=== PATIENT | female | born 1960 | race African-American/Black ===

== ENCOUNTER → 2016-08-22 | Outpatient (CLI) | payer OTHER ==
[~2016-08-22] MED LIST: AMOX875T PO; BUPR-267 PO; CLR10 PO; FAMO20TA11 PO; FLUT0.15; FLVHFA110 INH; IPRA1AER2 INH; IPRASOL4 INH; PRED10TA PO; PRED50TA PO; VNTHFA/IN INH
== END | disposition home or self-care (01) ==
LOC: C.PATHSPEC 15:43
PROVIDERS: ATTEND Obstetrics & Gynecology
DX: R87.610 Atypical squamous cells of undetermined significance on cytologic smear of cervix (ASC-US) (principal); R87.810 Cervical high risk human papillomavirus (HPV) DNA test positive

== ENCOUNTER → 2016-11-14 | Outpatient (CLI) | payer OTHER ==
[~2016-11-14] MED LIST changes: -AMOX875T PO; -BUPR-267 PO; -CLR10 PO; -FAMO20TA11 PO; -IPRASOL4 INH; -PRED10TA PO; -PRED50TA PO
--- NOTE | 2016-11-14 09:05 | DIAGNOSTIC IMAGING REPORT ---
CT OF THE CHEST WITHOUT IV CONTRAST CLINICAL HISTORY: R91.1 Pulmonary [id number] COMPARISON STUDY: 07/12/2016 CT DOSE: 166.01 mGycm TECHNIQUE: CT of the thorax was performed from the thoracic inlet to the lung bases. Images are reviewed in the axial, sagittal, and coronal planes. IV contrast was not administered for this examination. FINDINGS: Thyroid: Imaged portions of the thyroid gland are normal in appearance. Thoracic aorta: The thoracic aorta is normal in course and caliber, noting standard 3 vessel arch anatomy. Heart: The heart is normal in size and configuration, without pericardial effusion. Lungs and pleural spaces: There is pulmonary emphysema. There are new right upper lobe tree-in-bud opacities which are felt to be inflammatory. There is a new 6 mm right upper lobe cavitary lesion versus focally dilated bronchus as visualized in image #[id number]. This is likely inflammatory. There is an irregular 1 cm opacity within the right lower lobe as visualized in image #[id number]. Again inflammatory etiology is suspected. There is a 13 mm left lower lobe irregular airspace opacity which was not present on prior study. Again it inflammatory etiology is suspected. There is a 3.8 x 12 mm pleural-based opacity within the left lower lobe, likely inflammatory/atelectatic. There are bilateral cylindrical bronchiectatic changes present. There is no significant pleural fluid. Mediastinum: There is no mediastinal lymphadenopathy. Izabella: There is no evidence of pathologic hilar adenopathy given the limitations of a noncontrast study Axilla: There are mildly prominent right axillary lymph nodes, similar to the prior study Upper abdomen: Partially visualized upper abdominal viscera is within normal limits. Skeletal structures: There are no lytic or blastic osseous lesions. IMPRESSION: 1. Pulmonary emphysema 2. Cylindrical bronchiectasis 3. Multifocal ill-defined nodules and tree-in-bud opacities. An inflammatory etiology is suspected. Imaging subsequent to treatment is recommended in follow-up. Electronically signed by: Matias Lopez M.D. 11/14/2016 9:04 AM Dictated Date/Time: 11/14/2016 8:56 AM
== END | disposition home or self-care (01) ==
LOC: C.CTS 08:31
PROVIDERS: ATTEND Surgery
DX: R91.8 Other nonspecific abnormal finding of lung field (principal); J43.9 Emphysema, unspecified; J47.9 Bronchiectasis, uncomplicated

== ENCOUNTER → 2016-12-18 | Outpatient (CLI) | payer OTHER ==
[~2016-12-18] MED LIST changes: +AMOX875T PO; +BUPR-267 PO; +CLR10 PO; +FAMO20TA11 PO; +IPRASOL4 INH; +PRED10TA PO
[2016-12-18 12:12] LABS: BASO % 0.2 %; BASO ABS # 0.01 K/uL (0-0.2); COMPLETE YES; EOS % 1.7 %; HEMATOCRIT 39.4 % (37-47); IG% 0.3 %; LYMPH % 24.8 %; MEAN CELL VOLUME 92.5 fL (80-100); MEAN CORPUSCULAR HEMOGLOBIN 31.2 pg (25-34); MEAN CORPUSCULAR HGB CONC 33.8 g/dl (32-36); MEAN PLATELET VOLUME 8.7 fL (7.4-10.4); MONO % 6.2 %; NEUT % 66.8 %; PLATELET COUNT 332 K/uL (130-400); RED BLOOD COUNT 4.26 M/uL (4.2-5.4); WHITE BLOOD COUNT 6.46 K/uL (4.8-10.8)
[2016-12-18 12:25] LABS: INR 0.9 (0.9-1.1); PARTIAL THROMBOPLASTIN RATIO 0.9; PROTHROMBIN TIME (PATIENT) 9.9 SECONDS (9.0-12.0)
[2016-12-18 12:42] LABS: BLOOD UREA NITROGEN 10 mg/dl (7-18); BUN/CREATININE RATIO 15.1 (10-20); CALCIUM 9.2 mg/dl (8.5-10.1); CARBON DIOXIDE 32 mmol/L (21-32); CHLORIDE 102 mmol/L (98-107); CREATININE 0.68 mg/dl (0.60-1.20); GLUCOSE 80 mg/dl (70-99); POTASSIUM 3.6 mmol/L (3.5-5.1); SODIUM 140 mmol/L (136-145)
[2016-12-20 12:26] LABS: QUANTIFERON NIL 0.03 IU/ML
== END | disposition home or self-care (01) ==
LOC: C.LAB 10:11
PROVIDERS: ATTEND Physician Assistant
DX: R91.1 Solitary pulmonary nodule (principal); J44.1 Chronic obstructive pulmonary disease with (acute) exacerbation; R05 Cough

== ENCOUNTER 2017-07-08 07:09 | Emergency (ER) | payer OTHER ==
[~2017-07-08] VITALS: Ht 149.9 cm; Wt 55.9 kg
[~2017-07-08 07:09] MED LIST changes: -AMOX875T PO; -BUPR-267 PO; -CLR10 PO; -FAMO20TA11 PO; -IPRASOL4 INH; -PRED10TA PO
[2017-07-08 07:10] VITALS: TEMP 37.1; O2SAT 93; Ht 149.9 cm; Wt 55.9 kg
[2017-07-08] MEDS ORDERED: ALBUT/IPRATROP 3MG/0.5MG NEB 3 ML VIAL INH STA ×2 (07:16→09:05)
[2017-07-08] MEDS ORDERED: FAMO20TA11 PO (07:32)
[2017-07-08] MEDS ORDERED: CLR10 PO (07:32)
[2017-07-08] MEDS ORDERED: BUPR-267 PO (07:33)
[2017-07-08 07:34] LABS: BASO ABS # 0.03 K/uL (0-0.2); COMPLETE YES; EOS % 2.3 %; HEMATOCRIT 40.5 % (37-47); LYMPH % 43.4 %; LYMPH ABS # 1.34 K/uL (1.2-3.4); MEAN CELL VOLUME 91.4 fL (80-100); MEAN CORPUSCULAR HEMOGLOBIN 31.6 pg (25-34); MEAN CORPUSCULAR HGB CONC 34.6 g/dl (32-36); MEAN PLATELET VOLUME 8.8 fL (7.4-10.4); MONO % 14.6 %; NEUT % 38.7 %; PLATELET COUNT 287 K/uL (130-400); RED BLOOD COUNT 4.43 M/uL (4.2-5.4); WHITE BLOOD COUNT 3.09 K/uL (4.8-10.8)
--- NOTE | 2017-07-08 07:48 | DIAGNOSTIC IMAGING REPORT ---
CHEST 2 VIEWS ROUTINE CLINICAL HISTORY: Shortness of breath COMPARISON STUDY: 08/16/2016 FINDINGS: The cardiac and mediastinal contours are normal. There is no evidence of focal pulmonary consolidation. There is no evidence of failure. No pleural effusions are visualized.[ The patient appears mildly hyperinflated. IMPRESSION: No active disease in the chest. Electronically signed by: Matias Lopez M.D. 07/08/2017 7:47 AM Dictated Date/Time: 07/08/2017 7:46 AM
[2017-07-08 07:52] LABS: BUN/CREATININE RATIO 15.2 (10-20); CREATININE 0.69 mg/dl (0.60-1.20); POTASSIUM 3.4 mmol/L (3.5-5.1)
--- NOTE | 2017-07-08 10:35 | EMERGENCY ROOM VISIT NOTE ---
ED Visit Note First contact with patient: 07:11 Pt seen and examined at bedside after discussion with the PA. Pt felt improved following neb tx. Unclear what may have triggered what pt believes to be an asthma attack. Denies any recent cold sx. No hx of heart problems or PE. Pt given duonebs here and took prednisone at home before coming in. Pt required several nebs as she had conversational dyspnea after initial neb. Low risk well , but cannot rule out with PERC, dimer elevated and CTA negative. No chest pain or EKG changes, doubt cardiac etiology. Pt improved with additional nebs and steroids. Likely asthma/COPD exacerbation. HEART score 2
[2017-07-08 11:47] LABS: CKMB/CK RATIO 1.1 (0-3.0)
[2017-07-08] MEDS ORDERED: OPTIRAY 320 IV PRN (12:30)
--- NOTE | 2017-07-08 13:22 | DIAGNOSTIC IMAGING REPORT ---
CT ANGIOGRAM OF THE CHEST CLINICAL HISTORY: Shortness of breath. Positive d-dimer. History of asthma. COMPARISON STUDY: Chest x-ray dated 07/08/2017, CT scan dated 11/14/2016 TECHNIQUE: Following the IV administration of 73 mL of [id number]-[id number], CT angiogram of the thorax was performed from the thoracic inlet to the lung bases utilizing the pulmonary embolus protocol. Images are reviewed in the axial, sagittal, and coronal planes. IV contrast was administered without complication. MIP imaging was performed. A dose lowering technique was utilized adhering to the principles of ALARA. CT DOSE: 174.57 mGy.cm FINDINGS: No pathologically enlarged axillary mediastinal or hilar lymph nodes were visualized. There was no evidence of thoracic aortic dilatation. There were no pulmonary artery filling defects to indicate acute pulmonary embolism. No pleural effusions are visualized. There is evidence for underlying pulmonary emphysema. There are biapical bulla present. There is a prominent bulla within the lingula. There are bilateral cylindrical bronchiectatic changes. There is no lobar consolidation. There is an irregular marginated 11 mm opacity within the right lower lobe, similar to the preceding study. IMPRESSION: 1. No evidence of acute pulmonary embolism 2. Pulmonary emphysema and cylindrical bronchiectasis 3. Stable indeterminate 11 mm irregularly marginated right lower lobe opacity Electronically signed by: Matias Lopez M.D. 07/08/2017 1:20 PM Dictated Date/Time: 07/08/2017 1:16 PM
[2017-07-08] MEDS ORDERED: PRED10TA PO (13:47)
[2017-07-08 13:52] VITALS: BP 120/83; PULSE 83; O2SAT 92
--- NOTE | 2017-07-11 17:35 | EMERGENCY ROOM VISIT NOTE ---
History First contact with patient: 07:11 Chief Complaint: SHORTNESS OF BREATH Stated Complaint: SHORTNESS OF BREATH Nursing Triage Summary: Patient presents via BLS ambulance to room A3 with c/o SOB Patient reports that she woke at 0400 today with sudden onset of SOB She states that she took two prednisone and a duo nebulizer treatment at home States she still feels SOB and is coughing Hx/ asthma, COPD History of Present Illness The patient is a 56 year old -[place] female who presents to the Emergency Room with complaints of shortness of breath that started abruptly at 4 AM today. She has a known history of asthma. She states she has not had a flare of her asthma in over 2 years. She is not sure what caused today's flare. She states she went to bed last night without issue. She denies any fevers, chills, sweats, nausea, vomiting, chest pain, or rhinorrhea. She does have a mild cough. No known ill contacts. She lives by herself. She did take 2 tablets of prednisone 10mg this morning as well as a DuoNeb treatment around 6 AM. These were not helpful in relieving her symptoms. She arrives by BLS ambulance. No other complaints. Review of Systems REVIEW OF SYSTEM: HEENT: No dizziness, visual problems, hearing loss, or tinnitus. There is no difficulty swallowing and no oral lesions are present. LYMPH: No adenopathy. PULMONARY: No sputum production or hemoptysis. CARDIOVASCULAR: No palpitations or peripheral edema. GASTROINTESTINAL: No diarrhea, constipation, nausea, vomiting, or abdominal pain. GENITOURINARY: No dysuria, frequency, urgency or nocturia. NEUROLOGIC: No weakness, muscle tenderness, epilepsy or history of neurological problems. MUSCULOSKELETAL: No history of joint tenderness/swelling. No history of arthritis or arthralgias. SKIN: No rashes or lesions. PSYCHIATRIC: No history of depression or mental illness. ENDOCRINE: No history of diabetes, thyroid disorders, or abnormal hair growth. Past Medical/Surgical History Medical Problems: (1) Asthma Family History Asthma Social History Smoking Status: Current Every Day Smoker Smokeless Tobacco Use: No Alcohol Use: occasionally Drug Use: none Marital Status: Housing Status: lives with family Current/Historical Medications Scheduled Bupropion Hcl (Bupropion Hcl Er), 150 MG PO Q12 Famotidine (Pepcid), 20 MG PO DAILY Fluticasone Propionate (Flovent Hfa), 2 PUFFS INH BID Fluticasone Propionate (Nasal) (Flonase Allergy Relief), 1 SPRAY NA BID Ipratropium-Albuterol (Combivent Respimat), 1 PUFFS INH QID Loratadine (Claritin), 10 MG PO DAILY Prednisone Tab (Prednisone), 30 MG PO DAILY Scheduled PRN Albuterol Hfa (Ventolin Hfa), 2-4 PUFFS INH Q6H PRN for Shortness of Breath Physical Exam Vital Signs Date Time Temp Pulse Resp B/P (MAP) Pulse Ox O2 Delivery O2 Flow Rate FiO2 07/08/17 13:52 83 20 120/83 92 Room Air 07/08/17 13:27 85 07/08/17 12:20 79 20 118/73 97 Nasal Cannula 2.0 07/08/17 11:02 90 20 129/79 96 Nasal Cannula 2.0 07/08/17 10:50 96 07/08/17 10:03 110 90 Room Air 07/08/17 10:00 Nasal Cannula 2.0 07/08/17 10:00 94 22 122/85 88 Room Air 07/08/17 08:26 90 20 133/81 91 Room Air 07/08/17 07:30 84 20 128/84 94 Room Air 07/08/17 07:18 113 07/08/17 07:10 93 Room Air 07/08/17 07:10 37.1 92 20 151/103 93 Room Air 07/08/17 07:10 93 Room Air Physical Exam Gen.: Well-developed, well-nourished, middle-aged -[place] female, in no acute distress. Obvious respiratory difficulty. Sitting on a bed. Alert and oriented. Skin:Warm and dry with good turgor. No rashes or lesions. No ecchymosis or erythema. The patient is not diaphoretic. No abrasions. HEENT: Normocephalic atraumatic. Eyes PERRLA, EOMI. No conjunctiva or scleral injection. Ears TMs intact bilaterally with good light reflexes. No erythema or bulging. No hemotympanum. Canals are patent. Nares patent bilaterally without turbinate enlargement. No significant drainage. No epistaxis. Oropharynx without erythema or exudate. Uvula midline, oral mucosa moist. No lesions present. Poor dentition. Lymphatics are palpated without anterior or posterior chain enlargement or tenderness. Heart: Heart RRR. No MGR. Peripheral pulses are 2+. Lungs: Lungs are very tight to auscultation. Bilateral wheezing and bibasilar crackles are heard. Fair air movement. The patient is unable to take a deep breath. Abdomen: Abdomen was inspected, auscultated, and palpated. Bowel sounds present x 4. Soft, nontender to palpation. No hepato-splenomegaly. No masses noted. Musculoskeletal: Gross motor function of the upper and lower extremities is intact and unremarkable. Medical Decision & Procedures ER Provider Diagnostic Interpretation: Chest x-ray obtained today was read by radiology as negative for acute findings. CT scan imaging of the chest with IV contrast was also obtained. This was read by radiology as negative for PE or pneumonia. She does have emphysema changes. EKG obtained today shows a normal sinus rhythm with a rate of 83. No acute ST or T-wave changes are present. This was reviewed with Dr. Bower. Laboratory Results 07/08/17 07:20 Red Blood Count 4.43, Mean Corpuscular Volume 91.4, Mean Corpuscular Hemoglobin 31.6, Mean Corpuscular Hemoglobin Concent 34.6, Mean Platelet Volume 8.8, Neutrophils (%) (Auto) 38.7, Lymphocytes (%) (Auto) 43.4, Monocytes (%) (Auto) 14.6, Eosinophils (%) (Auto) 2.3, Basophils (%) (Auto) 1.0, Neutrophils # (Auto ) 1.20, Lymphocytes # (Auto) 1.34, Monocytes # (Auto) 0.45, Eosinophils # (Auto ) 0.07, Basophils # (Auto) 0.03 07/08/17 07:20 Test 07/08/17 07:16 07/08/17 07:20 07/08/17 11:34 Total Creatine Kinase 83 U/L (26-192) Creatine Kinase MB 0.9 ng/ml (0.5-3.6) Creatine Kinase MB Ratio 1.1 (0-3.0) Troponin I < 0.015 ng/ml (0-0.045) White Blood Count 3.09 K/uL (4.8-10.8) Red Blood Count 4.43 M/uL (4.2-5.4) Hemoglobin 14.0 g/dL (12.0-16.0) Hematocrit 40.5 % (37-47) Mean Corpuscular Volume 91.4 fL (80-100) Mean Corpuscular Hemoglobin 31.6 pg (25-34) Mean Corpuscular Hemoglobin Concent 34.6 g/dl (32-36) Platelet Count 287 K/uL (130-400) Mean Platelet Volume 8.8 fL (7.4-10.4) Neutrophils (%) (Auto) 38.7 % Lymphocytes (%) (Auto) 43.4 % Monocytes (%) (Auto) 14.6 % Eosinophils (%) (Auto) 2.3 % Basophils (%) (Auto) 1.0 % Neutrophils # (Auto) 1.20 K/uL (1.4-6.5) Lymphocytes # (Auto) 1.34 K/uL (1.2-3.4) Monocytes # (Auto) 0.45 K/uL (0.11-0.59) Eosinophils # (Auto) 0.07 K/uL (0-0.5) Basophils # (Auto) 0.03 K/uL (0-0.2) RDW Standard Deviation 49.6 fL (36.4-46.3) RDW Coefficient of Variation 14.7 % (11.5-14.5) Immature Granulocyte % (Auto) 0.0 % Immature Granulocyte # (Auto) 0.00 K/uL (0.00-0.02) Anion Gap 7.0 mmol/L (3-11) Est Creatinine Clear Calc Drug Dose 71.1 ml/min Estimated GFR () 114.4 Estimated GFR (Non- 98.7 BUN/Creatinine Ratio 15.2 (10-20) Calcium Level 9.0 mg/dl (8.5-10.1) D-Dimer 550 ug/L FEU (0-500) CBC, PRP, CK/CK-MB, troponin, and d-dimer were obtained. Cardiac enzymes are unremarkable. D-dimer is elevated at 550. CBC and PRP were unremarkable. Medications Administered Medications (Trade) Dose Ordered Sig/Eddie Route Start Time Stop Time Status Last Admin Dose Admin Albuterol/ Ipratropium (Duoneb) 3 ml NOW STAT INH 07/08/17 07:16 07/08/17 07:18 DC 07/08/17 07:46 3 ML Albuterol/ Ipratropium (Duoneb) 3 ml NOW STAT INH 07/08/17 09:05 07/08/17 09:06 DC 07/08/17 09:14 3 ML Prednisone (PredniSONE TAB) 20 mg NOW STAT PO 07/08/17 13:44 07/08/17 13:45 DC 07/08/17 14:08 20 MG DuoNeb treatment 2, prednisone 20 mg by mouth ED Course Patient was educated regarding today's findings. Conservative care measures were discussed. IV was established. Labs were obtained. Chest x-ray was also obtained to rule out pneumonia. This was unremarkable. Patient was given a DuoNeb treatment in the ED. Oxygen saturations improved considerably. She was ambulated and her saturations dropped again. She denied having any tightness in her chest. She was given a second DuoNeb treatment. Lung sounds improved considerably and she was no longer hypoxic when ambulatory. She states she is normally around 90-92% on room air in her daily life. Because of her elevated d -dimer, she was sent for CT scan imaging to rule out PE. This was read by radiology as unremarkable. She was instructed to follow-up with her PCP this week for reexamination. Return to the ED for any acute worsening of symptoms. Avoid smoking. Continue on prednisone 30 mg daily on Sunday through . Continue using her Flovent and Combivent inhalers. She may also use. Nebulizer at home as needed. Patient was seen in conjunction with Dr. Bower, who also evaluated the patient and concurred with today's diagnosis and treatment plan. Medical Decision Possibility of pneumonia, PE, acute asthma exacerbation, exacerbation of emphysema, bronchitis, and ACS were considered among others. Medication Reconcilliation Current Medication List: was personally reviewed by me Blood Pressure Screening Blood pressure disposition: Elevated BP felt to be situational Impression Primary Impression: Asthma exacerbation Departure Information Prescriptions Prednisone Tab (PREDNISONE) 10 Mg Tab 30 MG PO DAILY for 4 Days, #12 TAB Prov: Tomasz Mccain,P.A. 07/08/17 Referrals Miguel Mitchell D.ODena (PCP) Patient Instructions My [facility] Problem Qualifiers Primary Impression: Asthma exacerbation Asthma severity: unspecified severity Asthma persistence: intermittent Qualified Codes: J45.21 - Mild intermittent asthma with (acute) exacerbation
== END 2017-07-08 14:10 | disposition home or self-care (01) ==
LOC: EDBD 07:09 → C.EDA 07:10
DX: J45.901 Unspecified asthma with (acute) exacerbation (principal); F17.200 Nicotine dependence, unspecified, uncomplicated; Z79.51 Long term (current) use of inhaled steroids; Z79.52 Long term (current) use of systemic steroids; Z82.5 Family history of asthma and other chronic lower respiratory diseases

== ENCOUNTER 2017-07-11 11:08 | Emergency (ER) | payer OTHER ==
[~2017-07-11] VITALS: Ht 149.9 cm; Wt 51.0 kg
[~2017-07-11 11:08] MED LIST changes: +BUPR-267 PO; +CLR10 PO; +FAMO20TA11 PO; +PRED10TA PO
[2017-07-11 11:14] VITALS: Ht 149.9 cm; Wt 51.0 kg
[2017-07-11] MEDS ORDERED: ALBUT/IPRATROP 3MG/0.5MG NEB 3 ML VIAL INH STA (11:24)
--- NOTE | 2017-07-11 12:06 | DIAGNOSTIC IMAGING REPORT ---
CHEST ONE VIEW PORTABLE CLINICAL HISTORY: Cough, dyspnea, heart racing cardiac arrhythmia COMPARISON STUDY: 07/08/2017 FINDINGS: Lungs are clear. Diaphragms smooth. No evidence for cardiac enlargement. IMPRESSION: No acute process. The above report was generated using voice recognition software. It may contain grammatical, syntax or spelling errors. Electronically signed by: Shailesh Arauz M.D. 07/11/2017 12:05 PM Dictated Date/Time: 07/11/2017 12:05 PM
--- NOTE | 2017-07-11 12:17 | EMERGENCY ROOM VISIT NOTE ---
History First contact with patient: 11:16 Chief Complaint: SHORTNESS OF BREATH Stated Complaint: SOB Nursing Triage Summary: Sudden onset of shortness of breath while making her bed this morning. Patient states that she felt tightness in her throat and her heart was racing. States that she used ventolin, flovent, and her nebulizer this morning prior to this occurring. History of Present Illness The patient is a 56 year old female who presents to the Emergency Room via ambulance with complaints of "shortness of breath". The patient does have a history of asthma. She states she was seen here on Sunday. She recently began Wellbutrin 1.5 weeks ago. She states that this does not feel like her asthma. Today while making the bed she stood up and her heart began racing, her throat felt that it was closing and she felt short of breath. She states that she has a history of asthma but notes that this is not the same. There was no chest pain. States that she called 911 she called 911 and was brought here and had duo nebs. They did help some. She denies any new foods. She is also been trying to quit smoking of which she was prescribed Wellbutrin for. Review of Systems A complete 10-point Review of Systems was discussed with the patient, with pertinent positives and negatives listed in the History of Present Illness. All remaining Review of Systems questions can be considered negative unless otherwise specified. Past Medical/Surgical History Medical Problems: (1) Asthma Family History Asthma Social History Smoking Status: Current Every Day Smoker Alcohol Use: occasionally Drug Use: none Marital Status: Housing Status: lives with family Current/Historical Medications Scheduled Bupropion Hcl (Bupropion Hcl Er), 150 MG PO Q12 Famotidine (Pepcid), 20 MG PO DAILY Fluticasone Propionate (Flovent Hfa), 2 PUFFS INH BID Fluticasone Propionate (Nasal) (Flonase Allergy Relief), 1 SPRAY NA BID Ipratropium-Albuterol (Combivent Respimat), 1 PUFFS INH QID Loratadine (Claritin), 10 MG PO DAILY Prednisone Tab (Prednisone), 30 MG PO DAILY Scheduled PRN Albuterol Hfa (Ventolin Hfa), 2-4 PUFFS INH Q6H PRN for Shortness of Breath Physical Exam Vital Signs Date Time Temp Pulse Resp B/P (MAP) Pulse Ox O2 Delivery O2 Flow Rate FiO2 07/11/17 14:12 36.8 94 18 159/71 92 07/11/17 13:19 104 22 117/85 93 Room Air 07/11/17 12:51 80 20 122/82 97 Nebulizer 10.0 07/11/17 11:31 103 07/11/17 11:18 92 Room Air 07/11/17 11:14 36.7 92 22 166/100 93 Room Air Physical Exam VITAL SIGNS - Vital signs and nursing notes were reviewed. Stable. Hypertensive. GENERAL -56-year-old female appearing her stated age who is in no acute distress. Communicates well with provider and answers questions appropriately. SKIN - Without rashes. The petechial rashes. HEAD - NC/AT. EYES - PERRL with EOMI bilaterally. Sclera anicteric. EARS - No deformities of external structures noted on gross examination bilaterally. NOSE - Midline and without cyanosis. No epistaxis or purulent drainage noted. MOUTH/OROPHARYNX - Without perioral cyanosis. LUNGS - Chest wall symmetric without accessory muscle use, intercostals retractions, or central cyanosis. Normal vesicular breath sounds CTA B/L. No wheezes, rales, or rhonchi appreciated. CARDIAC - RRR with S1/S2. No murmur, rubs, or gallops appreciated. Medical Decision & Procedures ER Provider Diagnostic Interpretation: CHEST ONE VIEW PORTABLE CLINICAL HISTORY: Cough, dyspnea, heart racing cardiac arrhythmia COMPARISON STUDY: 07/08/2017 FINDINGS: Lungs are clear. Diaphragms smooth. No evidence for cardiac enlargement. IMPRESSION: No acute process. The above report was generated using voice recognition software. It may contain grammatical, syntax or spelling errors. Electronically signed by: Shailesh Arauz M.D. 07/11/2017 12:05 PM Dictated Date/Time: 07/11/2017 12:05 PM Laboratory Results 07/11/17 12:19 Red Blood Count 4.07, Mean Corpuscular Volume 92.4, Mean Corpuscular Hemoglobin 30.7, Mean Corpuscular Hemoglobin Concent 33.2, Mean Platelet Volume 8.9, Neutrophils (%) (Auto) 74.8, Lymphocytes (%) (Auto) 21.0, Monocytes (%) (Auto) 3.9, Eosinophils (%) (Auto) 0.0, Basophils (%) (Auto) 0.3, Neutrophils # (Auto) 2.67, Lymphocytes # (Auto) 0.75, Monocytes # (Auto) 0.14, Eosinophils # (Auto) 0.00, Basophils # (Auto) 0.01 07/11/17 12:19 Test 07/11/17 12:19 White Blood Count 3.57 K/uL (4.8-10.8) Red Blood Count 4.07 M/uL (4.2-5.4) Hemoglobin 12.5 g/dL (12.0-16.0) Hematocrit 37.6 % (37-47) Mean Corpuscular Volume 92.4 fL (80-100) Mean Corpuscular Hemoglobin 30.7 pg (25-34) Mean Corpuscular Hemoglobin Concent 33.2 g/dl (32-36) Platelet Count 319 K/uL (130-400) Mean Platelet Volume 8.9 fL (7.4-10.4) Neutrophils (%) (Auto) 74.8 % Lymphocytes (%) (Auto) 21.0 % Monocytes (%) (Auto) 3.9 % Eosinophils (%) (Auto) 0.0 % Basophils (%) (Auto) 0.3 % Neutrophils # (Auto) 2.67 K/uL (1.4-6.5) Lymphocytes # (Auto) 0.75 K/uL (1.2-3.4) Monocytes # (Auto) 0.14 K/uL (0.11-0.59) Eosinophils # (Auto) 0.00 K/uL (0-0.5) Basophils # (Auto) 0.01 K/uL (0-0.2) RDW Standard Deviation 51.7 fL (36.4-46.3) RDW Coefficient of Variation 15.2 % (11.5-14.5) Immature Granulocyte % (Auto) 0.0 % Immature Granulocyte # (Auto) 0.00 K/uL (0.00-0.02) Erythrocyte Sedimentation Rate 43 mm/hr (0-21) Prothrombin Time 10.3 SECONDS (9.0-12.0) Prothromb Time International Ratio 1.0 (0.9-1.1) Activated Partial Thromboplast Time 25.2 SECONDS (21.0-31.0) Partial Thromboplastin Ratio 1.0 Anion Gap 5.0 mmol/L (3-11) Est Creatinine Clear Calc Drug Dose 61.0 ml/min Estimated GFR () 110.0 Estimated GFR (Non- 94.9 BUN/Creatinine Ratio 11.9 (10-20) Calcium Level 8.4 mg/dl (8.5-10.1) Magnesium Level 1.9 mg/dl (1.8-2.4) Total Bilirubin 0.4 mg/dl (0.2-1) Aspartate Amino Transf (AST/SGOT) 100 U/L (15-37) Alanine Aminotransferase (ALT/SGPT) 79 U/L (12-78) Alkaline Phosphatase 489 U/L (45-117) Total Creatine Kinase 54 U/L (26-192) Creatine Kinase MB 0.8 ng/ml (0.5-3.6) Creatine Kinase MB Ratio 1.5 (0-3.0) Troponin I < 0.015 ng/ml (0-0.045) C-Reactive Protein 0.41 mg/dl (0-0.29) Total Protein 8.2 gm/dl (6.4-8.2) Albumin 3.2 gm/dl (3.4-5.0) Globulin 5.0 gm/dl (2.5-4.0) Albumin/Globulin Ratio 0.6 (0.9-2) Thyroid Stimulating Hormone (TSH) 0.874 uIu/ml (0.300-4.500) Medications Administered Medications (Trade) Dose Ordered Sig/Eddie Route Start Time Stop Time Status Last Admin Dose Admin Albuterol/ Ipratropium (Duoneb) 12 ml ONE STAT INH 07/11/17 11:24 07/11/17 11:26 DC 07/11/17 11:52 12 ML Medical Decision Patient was seen and evaluated as above. She presents to us via ambulance. She states that she was seen here on Sunday and notes that her episode. Although it is concerning for potential asthma attack I suspect are due to underlying anxiety component or perhaps this is a side effect of her new medication Wellbutrin. She began this to help stop smoking. Chest x-ray was obtained with no acute process. There is no leukocytosis or concerning anemia. ESR slightly high at 43. Coag negative. Patient metabolic panel reveals CRP slightly high 0.41, however her AST, ALT and alkaline phosphatase are all elevated. They have been similar previously. Calcium low at 8.4. Potassium 3.4. She is noting that she is to have a liver biopsy in August. EKG reveals no acute change compared to previous. She is in normal sinus rhythm with sinus arrhythmia. Possible left atrial enlargement. Potential LVH. There is no nonspecific ST and T wave abnormality. At this time she appears stable for outpatient management after feeling much better after a DuoNeb. She was educated upon management, and informed that she is to take her Wellbutrin every other day until she sees her family doctor on Sunday. She has an appointment with Dr. Cosme on Sunday. She was educated upon management, educated upon worrisome symptoms which to return, had questions prior to discharge, and was discharged home in good condition. In evaluation treatment this patient following differential diagnoses were entertained: WI, PE, asthma attack/exacerbation, dictation side effect, among others. Impression Primary Impression: Shortness of breath Additional Impression: potential medication side effect Departure Information Dispostion Home / Self-Care Condition GOOD Referrals No Doctor, Assigned (PCP) Patient Instructions My [facility] Additional Instructions You have been treated in the Emergency Department your heart racing and shortness of breath. Laboratory results and imaging studies have ruled out any emergent causes for your symptoms which would warrant admission or surgery. You may continue regular medications but we recommend that you take the bupropion every other day. This is until you see Dr. Cosme on Sunday. Please follow-up with your family doctor regarding her elevated liver chemicals here today. Drink plenty of water and stay well hydrated. As with any trip to the Emergency Department, you should follow-up with your Primary Care Provider from today's visit. Please return with any new/concerning symptoms. Thank you for your time. Problem Qualifiers
[2017-07-11 13:01] LABS: BASO % 0.3 %; BASO ABS # 0.01 K/uL (0-0.2); COMPLETE YES; HEMATOCRIT 37.6 % (37-47); LYMPH ABS # 0.75 K/uL (1.2-3.4); MEAN CELL VOLUME 92.4 fL (80-100); MEAN CORPUSCULAR HEMOGLOBIN 30.7 pg (25-34); MEAN CORPUSCULAR HGB CONC 33.2 g/dl (32-36); MEAN PLATELET VOLUME 8.9 fL (7.4-10.4); MONO % 3.9 %; NEUT % 74.8 %; PLATELET COUNT 319 K/uL (130-400); RED BLOOD COUNT 4.07 M/uL (4.2-5.4); WHITE BLOOD COUNT 3.57 K/uL (4.8-10.8)
[2017-07-11 13:10] LABS: PROTHROMBIN TIME (PATIENT) 10.3 SECONDS (9.0-12.0)
[2017-07-11 13:24] LABS: ALT/SGPT 79 U/L (12-78); AST/SGOT 100 U/L (15-37); BLOOD UREA NITROGEN 9 mg/dl (7-18); BUN/CREATININE RATIO 11.9 (10-20); CALCIUM 8.4 mg/dl (8.5-10.1); CARBON DIOXIDE 28 mmol/L (21-32); CHLORIDE 107 mmol/L (98-107); CREATININE 0.72 mg/dl (0.60-1.20); GLUCOSE 122 mg/dl (70-99); MAGNESIUM 1.9 mg/dl (1.8-2.4); POTASSIUM 3.4 mmol/L (3.5-5.1); SODIUM 140 mmol/L (136-145)
[2017-07-11 13:32] LABS: ALB/GLOB RATIO 0.6 (0.9-2); ALKALINE PHOSPHATASE 489 U/L (45-117); C-REACTIVE PROTEIN 0.41 mg/dl (0-0.29); CKMB/CK RATIO 1.5 (0-3.0); THYROID STIMULATING HORMONE 0.874 uIu/ml (0.300-4.500)
[2017-07-11 14:12] VITALS: BP 159/71; PULSE 94; TEMP 36.8; O2SAT 92
== END 2017-07-11 14:15 | disposition home or self-care (01) ==
LOC: EDBD 11:08 → C.EDA 11:08
DX: R06.02 Shortness of breath (principal); T43.295A Adverse effect of other antidepressants, initial encounter; J45.909 Unspecified asthma, uncomplicated; F17.210 Nicotine dependence, cigarettes, uncomplicated; Z79.899 Other long term (current) drug therapy

== ENCOUNTER 2017-07-14 07:15 | Emergency (ER) | payer OTHER ==
[~2017-07-14] VITALS: Ht 149.9 cm; Wt 56.3 kg
[2017-07-14 07:20] VITALS: O2SAT 96
[2017-07-14 07:21] VITALS: TEMP 36.7; Ht 149.9 cm; Wt 56.3 kg
[2017-07-14] MEDS ORDERED: ALBUT/IPRATROP 3MG/0.5MG NEB 3 ML VIAL INH STA (07:24)
[2017-07-14] MEDS ORDERED: ONDANSETRON INJ 2 MG/ML 2 ML VIAL IV STA ×2 (07:24→09:27)
[2017-07-14] MEDS ORDERED: SODIUM CHLORIDE 0.9% 1000ML 1,000 ML IV STA (07:24)
[2017-07-14] MEDS ORDERED: MoRPHine SULFATE 4 MG/ML 1 ML CARP\\VIAL IV STA ×2 (07:24→09:27)
[2017-07-14] MEDS ORDERED: OPTIRAY 320 IV PRN (07:45)
[2017-07-14 08:00] LABS: BASO % 0.5 %; BASO ABS # 0.04 K/uL (0-0.2); COMPLETE YES; EOS % 1.6 %; HEMATOCRIT 38.1 % (37-47); IG% 0.2 %; LYMPH % 35.1 %; LYMPH ABS # 2.94 K/uL (1.2-3.4); MEAN CELL VOLUME 91.8 fL (80-100); MEAN CORPUSCULAR HEMOGLOBIN 30.8 pg (25-34); MEAN CORPUSCULAR HGB CONC 33.6 g/dl (32-36); MEAN PLATELET VOLUME 8.7 fL (7.4-10.4); MONO % 8.5 %; NEUT % 54.1 %; PLATELET COUNT 351 K/uL (130-400); RED BLOOD COUNT 4.15 M/uL (4.2-5.4); WHITE BLOOD COUNT 8.37 K/uL (4.8-10.8)
[2017-07-14] MEDS ORDERED: PRED10TA PO (08:10)
[2017-07-14] MEDS ORDERED: IPRASOL4 INH (08:10)
[2017-07-14 08:13] LABS: ALT/SGPT 86 U/L (12-78); BLOOD UREA NITROGEN 11 mg/dl (7-18); BUN/CREATININE RATIO 16.1 (10-20); CALCIUM 8.8 mg/dl (8.5-10.1); CARBON DIOXIDE 27 mmol/L (21-32); CHLORIDE 106 mmol/L (98-107); CREATININE 0.66 mg/dl (0.60-1.20); GLUCOSE 84 mg/dl (70-99); POTASSIUM 3.3 mmol/L (3.5-5.1); SODIUM 140 mmol/L (136-145)
[2017-07-14 08:15] LABS: ALKALINE PHOSPHATASE 467 U/L (45-117); AST/SGOT 73 U/L (15-37)
[2017-07-14 08:37] LABS: MANUAL MICROSCOPIC REQUIRED? YES; URINE APPEARANCE CLEAR (CLEAR); URINE BILIRUBIN NEG (NEG); URINE COLOR YELLOW; URINE NITRITE NEG (NEG); URINE PH 5.5 (4.5-7.5); UROBILINOGEN NEG (NEG)
[2017-07-14 08:41] LABS: REVIEW REQ? NO
--- NOTE | 2017-07-14 08:44 | EMERGENCY ROOM VISIT NOTE ---
ED Visit Note First contact with patient: 07:17 I have seen and examined this patient with hCuck Rodriguez and generally agree with the treatment plan as discussed. Problem List Medical Problems: (1) Asthma Status: Chronic Current/Historical Medications Scheduled Bupropion Hcl (Bupropion Hcl Er), 150 MG PO Q12 Famotidine (Pepcid), 20 MG PO DAILY Fluticasone Propionate (Flovent Hfa), 2 PUFFS INH BID Fluticasone Propionate (Nasal) (Flonase Allergy Relief), 1 SPRAY NA BID Ipratropium-Albuterol (Combivent Respimat), 1 PUFFS INH QID Ipratropium-Albuterol (Duoneb), 1 TREATMENT INH Q4H Loratadine (Claritin), 10 MG PO DAILY Prednisone (Prednisone), 0 PO UD Scheduled PRN Albuterol Hfa (Ventolin Hfa), 2-4 PUFFS INH Q6H PRN for Shortness of Breath Allergies Coded Allergies: No Known Allergies (Unverified , 07/14/17) Vital Signs Date Time Temp Pulse Resp B/P (MAP) Pulse Ox O2 Delivery O2 Flow Rate FiO2 07/14/17 07:21 96 Room Air 07/14/17 07:21 36.7 93 22 168/101 96 Room Air 07/14/17 07:21 83 07/14/17 07:20 96 Room Air Laboratory Results 07/14/17 07:45 Red Blood Count 4.15, Mean Corpuscular Volume 91.8, Mean Corpuscular Hemoglobin 30.8, Mean Corpuscular Hemoglobin Concent 33.6, Mean Platelet Volume 8.7, Neutrophils (%) (Auto) 54.1, Lymphocytes (%) (Auto) 35.1, Monocytes (%) (Auto) 8.5, Eosinophils (%) (Auto) 1.6, Basophils (%) (Auto) 0.5, Neutrophils # (Auto) 4.53, Lymphocytes # (Auto) 2.94, Monocytes # (Auto) 0.71, Eosinophils # (Auto) 0.13, Basophils # (Auto) 0.04 07/14/17 07:45 Test 07/14/17 07:35 07/14/17 07:45 Urine Color YELLOW Urine Appearance CLEAR (CLEAR) Urine pH 5.5 (4.5-7.5) Urine Specific [place] 1.010 (1.000-1.030) Urine Protein NEG (NEG) Urine Glucose (UA) NEG (NEG) Urine Ketones NEG (NEG) Urine Occult Blood NEG (NEG) Urine Nitrite NEG (NEG) Urine Bilirubin NEG (NEG) Urine Urobilinogen NEG (NEG) Urine Leukocyte Esterase SMALL (NEG) White Blood Count 8.37 K/uL (4.8-10.8) Red Blood Count 4.15 M/uL (4.2-5.4) Hemoglobin 12.8 g/dL (12.0-16.0) Hematocrit 38.1 % (37-47) Mean Corpuscular Volume 91.8 fL (80-100) Mean Corpuscular Hemoglobin 30.8 pg (25-34) Mean Corpuscular Hemoglobin Concent 33.6 g/dl (32-36) Platelet Count 351 K/uL (130-400) Mean Platelet Volume 8.7 fL (7.4-10.4) Neutrophils (%) (Auto) 54.1 % Lymphocytes (%) (Auto) 35.1 % Monocytes (%) (Auto) 8.5 % Eosinophils (%) (Auto) 1.6 % Basophils (%) (Auto) 0.5 % Neutrophils # (Auto) 4.53 K/uL (1.4-6.5) Lymphocytes # (Auto) 2.94 K/uL (1.2-3.4) Monocytes # (Auto) 0.71 K/uL (0.11-0.59) Eosinophils # (Auto) 0.13 K/uL (0-0.5) Basophils # (Auto) 0.04 K/uL (0-0.2) RDW Standard Deviation 51.1 fL (36.4-46.3) RDW Coefficient of Variation 15.1 % (11.5-14.5) Immature Granulocyte % (Auto) 0.2 % Immature Granulocyte # (Auto) 0.02 K/uL (0.00-0.02) Anion Gap 7.0 mmol/L (3-11) Est Creatinine Clear Calc Drug Dose 74.5 ml/min Estimated GFR () 116.1 Estimated GFR (Non- 100.1 BUN/Creatinine Ratio 16.1 (10-20) Calcium Level 8.8 mg/dl (8.5-10.1) Total Bilirubin 0.4 mg/dl (0.2-1) Direct Bilirubin 0.1 mg/dl (0-0.2) Aspartate Amino Transf (AST/SGOT) 73 U/L (15-37) Alanine Aminotransferase (ALT/SGPT) 86 U/L (12-78) Alkaline Phosphatase 467 U/L (45-117) Total Protein 8.0 gm/dl (6.4-8.2) Albumin 3.2 gm/dl (3.4-5.0) Lipase 105 U/L (73-393) Medications Administered Medications (Trade) Dose Ordered Sig/Eddie Route Start Time Stop Time Status Last Admin Dose Admin Albuterol/ Ipratropium (Duoneb) 3 ml NOW STAT INH 07/14/17 07:24 07/14/17 07:27 DC 07/14/17 07:35 3 ML Ondansetron HCl (Zofran Inj) 4 mg NOW STAT IV 07/14/17 07:24 07/14/17 07:27 DC 07/14/17 07:35 4 MG Sodium Chloride 1,000 ml @ 200 mls/hr Q5H STAT IV 07/14/17 07:24 07/14/17 12:23 07/14/17 07:35 200 MLS/HR Morphine Sulfate (MoRPHine SULFATE INJ) 4 mg NOW STAT IV 07/14/17 07:24 07/14/17 07:27 DC 07/14/17 07:35 4 MG Departure Information Referrals No Doctor, Assigned (PCP) Patient Instructions Formerly [facility]
--- NOTE | 2017-07-14 08:45 | DIAGNOSTIC IMAGING REPORT ---
PA CHEST RADIOGRAPH AND UPRIGHT AND SUPINE AP RADIOGRAPHS OF THE ABDOMEN CLINICAL HISTORY: Left-sided abdominal pain. COMPARISON STUDY: Chest CT July 08, 2017, chest radiograph July 16, 2017 and PET/CT August 09, 2016. FINDINGS: No consolidation is identified. There is no evidence for pulmonary edema. No pneumothorax or pleural effusion is noted. Cardiomediastinal silhouette is normal. There is oral contrast within the stomach. No free air is present. A moderate amount of stool within the colon and rectum is noted. There is no evidence for a bowel obstruction. A right hip arthroplasty is incidentally noted. There is avascular necrosis of the left femoral head. IMPRESSION: 1. No free air or evidence of bowel obstruction. 2. Moderate amount of stool within the colon and rectum. 3. Avascular necrosis of the left femoral head. 4. No acute cardiopulmonary findings. Electronically signed by: Sudheer Leach M.D. 07/14/2017 8:44 AM Dictated Date/Time: 07/14/2017 8:42 AM
[2017-07-14 08:49] LABS: URINE BACTERIA NEG (NEG); URINE RBC 0-4 /hpf (0-4)
--- NOTE | 2017-07-14 10:24 | DIAGNOSTIC IMAGING REPORT ---
CT OF THE ABDOMEN AND PELVIS WITH CONTRAST CLINICAL HISTORY: Abdominal pain. COMPARISON STUDY: Abdominal ultrasound January 13, 2016, MRCP January 19, 2016 and abdominal series performed earlier today. TECHNIQUE: Following IV administration of 93 mL of Optiray-320, axial images of the abdomen and pelvis were obtained from the lung bases to the proximal femurs. Images were reviewed in the axial, sagittal, and coronal planes. IV contrast was administered without complication. A dose lowering technique was utilized adhering to the principles of ALARA. Oral contrast was administered. CT DOSE: 226.51 mGy.cm FINDINGS: Oral contrast within the distal esophagus may reflect reflux. The liver, spleen, adrenal glands, kidneys and pancreas are normal. There are multiple gallstones within the gallbladder. There is no pericholecystic infiltration. There is no evidence for a bowel obstruction. The appendix is normal. A suspected uterine fibroid is noted. There is colonic diverticulosis. Minimal fluid is noted along the posterior aspect of the mid to distal descending colon. There is no bowel wall thickening. Moderate amount of stool is noted within the colon and rectum. A right hip arthroplasty is noted. There is avascular necrosis of the left femoral head without collapse. There is no lymphadenopathy. IMPRESSION: 1. Left colon diverticulosis with trace fluid along the posterior aspect of the mid to distal descending colon. No bowel wall thickening. Although considered unlikely, mild acute diverticulitis could have this appearance. 2. Moderate amount of stool within the colon. Normal appendix. No bowel obstruction. 3. Avascular necrosis of the left femoral head without collapse. 4. Cholelithiasis without evidence for acute cholecystitis. 5. Oral contrast within the distal esophagus which may reflect gastroesophageal reflux. Electronically signed by: Sudheer Leach M.D. 07/14/2017 10:23 AM Dictated Date/Time: 07/14/2017 10:13 AM
[2017-07-14] MEDS ORDERED: AMOX875T PO (11:34)
[2017-07-14 11:46] VITALS: BP 124/80; PULSE 75; O2SAT 94
--- NOTE | 2017-07-15 06:54 | EMERGENCY ROOM VISIT NOTE ---
ED Visit Note First contact with patient: 07:17 Chief Complaint: Shortness of breath. History of Present Illness: Ms. Cardona is a 56-year-old black female who is brought into the ED via ambulance complaining of shortness of breath. EMS reports patient was given a DuoNeb breathing treatment in route for her shortness of breath and subjectively reported that she appeared better. Otherwise they report her transport was normal. Historically patient reports she has a history of asthma. She reports she has not had a previous asthma attack until approximately 2 years ago. On July 08 and July 11 she was seen in this ED for shortness of breath. At that time for workups were performed including a chest CT and no acute findings for her asthma exacerbation was found and she was discharged home in stable condition. Additionally patient reports she has just stopped smoking and has been using Patient reports approximately 2 hours before she arrived in the emergency department she was acutely woken up from sleep with sensations of shortness of breath and left lower quadrant abdominal pain. As previously noted she did subjectively reported after she received her breathing treatment en route her shortness of breath has improved but she reports she is still feeling "tight". He has not identified any aggravating related to her shortness of breath. She has been using her albuterol and prednisone with intermittent relief of her shortness of breath. Associated with her shortness of breath she does report at the onset she has a sensation of heart racing. She denies any associated fevers, chills, sweats, skin eruptions, skin color changes, upper respiratory tract symptoms, chest pain/discomfort, previous clots, claudication, cramping, nausea and vomiting. Patient also reports she's morning she had an acute onset of left lower quadrant abdominal pain. She describes this as a sharp sensation. She rates her discomfort 8/10. Her pain is nonradiating. Her pain worsens with palpation. She has not identified any alleviating or aggravating factors related to the pain. She has not taken a medication for pain prior to arrival at the hospital. She did not report this to EMS or the nursing personnel in the ED. Additionally she denies any associated decreased appetite, weight loss, diarrhea , constipation, rectal bleeding, black/tarry stools, urinary symptoms, back/ flank pain. Review of Systems: As noted above in history of present illness. All body systems were reviewed and found to be negative as noted above. Past Medical History: As previously noted. Current Medications: Medications Dose Route/Sig Max Daily Dose Days Date Category Bupropion Hcl Er (Bupropion Hcl) 150 Mg Tab 150 Mg PO Q12 07/08/17 Reported Pepcid (Famotidine) 20 Mg Tab 20 Mg PO DAILY 07/08/17 Reported Claritin (Loratadine) 10 Mg Tab 10 Mg PO DAILY 07/08/17 Reported Ventolin Hfa (Albuterol) 200 Puffs/61409 Mcg Aers 2-4 Puffs INH Q6H PRN 08/14/16 Reported Flonase Allergy Relief (Fluticasone Propionate (Nasal)) 50 Mcg/Act Spr 1 [place] NA BID 08/14/16 Reported Flovent Hfa (Fluticasone Propionate) 120 Puffs/01455 Mcg Aero 2 Puffs INH BID 08/14/16 Reported Combivent Respimat (Ipratropium-Albuterol) 1 Aer Aer 1 Puffs INH QID 12/16/15 Reported Allergies to Medications: Patient denies. Social History: Physical Examination: Vital Signs: Date Time Temp Pulse Resp B/P (MAP) Pulse Ox O2 Delivery O2 Flow Rate FiO2 07/14/17 11:46 75 18 124/80 94 07/14/17 10:36 Nasal Cannula 2.0 07/14/17 10:34 92 18 153/83 92 Room Air 07/14/17 09:03 80 18 133/86 93 Room Air 07/14/17 07:21 96 Room Air 07/14/17 07:21 36.7 93 22 168/101 96 Room Air 07/14/17 07:21 83 07/14/17 07:20 96 Room Air GENERAL: 56-year-old female in mild respiratory distress, nontoxic-appearing, afebrile and hemodynamically stable. NEUROLOGICAL: Awake, alert and oriented to person, place and time. Answering questions appropriately and following commands. Good hand eye coordination. No focal motor or sensory deficits. SKIN: Warm, dry and pink. No soft tissue eruptions or trauma noted. HEENT: Atraumatic and normocephalic. PERRLA. Sclera white and conjunctiva pink. No drainage from naris. Airway is patent. Oral cavity moist and pink. Pharynx is nonerythematous or edematous. Speech normal. No lymphadenopathy. Trachea midline. No jugular venous distention. BACK: No tenderness over the bony spine. No CVA tenderness. THORAX: Lungs sounds are clear to auscultation but significantly decreased in all calero. Equal bilaterally with symmetrical chest wall. No wheezing, rales or rhonchi. No crepitus, tenderness, subcutaneous air or deformities noted. HEART: Regular rate and rhythm. No gallops, rubs or murmurs are appreciated. ABDOMEN: Flat and soft moderate tenderness in the left lower quadrant associated with voluntary guarding. Decreased bowel sounds in all quadrants. No rigidity or organomegaly. EXTREMITIES: Moves all extremities well on command and with purpose. All distal neurovascular statuses are intact and equal bilaterally. No calf tenderness or cords. ED Course: Patient is assessed as noted above. Patient's medication list was reviewed. Laboratory Testing: Test 07/14/17 07:35 07/14/17 07:45 Range/Units Urine Color YELLOW Urine Appearance CLEAR CLEAR Urine pH 5.5 4.5-7.5 Urine Specific [place] 1.010 1.000-1.030 Urine Protein NEG NEG Urine Glucose (UA) NEG NEG Urine Ketones NEG NEG Urine Occult Blood NEG NEG Urine Nitrite NEG NEG Urine Bilirubin NEG NEG Urine Urobilinogen NEG NEG Urine Leukocyte Esterase SMALL NEG Urine RBC 0-4 0-4 /hpf Urine WBC 5-10 0-5 /hpf Urine Epithelial Cells 0-5 0-5 /lpf Urine Bacteria NEG NEG White Blood Count 8.37 4.8-10.8 K/uL Red Blood Count 4.15 4.2-5.4 M/uL Hemoglobin 12.8 12.0-16.0 g/dL Hematocrit 38.1 37-47 % Mean Corpuscular Volume 91.8 80-100 fL Mean Corpuscular Hemoglobin 30.8 25-34 pg Mean Corpuscular Hemoglobin Concent 33.6 32-36 g/dl Platelet Count 351 130-400 K/uL Mean Platelet Volume 8.7 7.4-10.4 fL Neutrophils (%) (Auto) 54.1 % Lymphocytes (%) (Auto) 35.1 % Monocytes (%) (Auto) 8.5 % Eosinophils (%) (Auto) 1.6 % Basophils (%) (Auto) 0.5 % Neutrophils # (Auto) 4.53 1.4-6.5 K/uL Lymphocytes # (Auto) 2.94 1.2-3.4 K/uL Monocytes # (Auto) 0.71 0.11-0.59 K/uL Eosinophils # (Auto) 0.13 0-0.5 K/uL Basophils # (Auto) 0.04 0-0.2 K/uL RDW Standard Deviation 51.1 36.4-46.3 fL RDW Coefficient of Variation 15.1 11.5-14.5 % Immature Granulocyte % (Auto) 0.2 % Immature Granulocyte # (Auto) 0.02 0.00-0.02 K/uL Sodium Level 140 136-145 mmol/L Potassium Level 3.3 3.5-5.1 mmol/L Chloride Level 106 98-107 mmol/L Carbon Dioxide Level 27 21-32 mmol/L Anion Gap 7.0 3-11 mmol/L Blood Urea Nitrogen 11 7-18 mg/dl Creatinine 0.66 0.60-1.20 mg/dl Est Creatinine Clear Calc Drug Dose 74.5 ml/min Estimated GFR () 116.1 Estimated GFR (Non- 100.1 BUN/Creatinine Ratio 16.1 10-20 Random Glucose 84 70-99 mg/dl Calcium Level 8.8 8.5-10.1 mg/dl Total Bilirubin 0.4 0.2-1 mg/dl Direct Bilirubin 0.1 0-0.2 mg/dl Aspartate Amino Transf (AST/SGOT) 73 15-37 U/L Alanine Aminotransferase (ALT/SGPT) 86 12-78 U/L Alkaline Phosphatase 467 45-117 U/L Troponin I < 0.015 0-0.045 ng/ml Total Protein 8.0 6.4-8.2 gm/dl Albumin 3.2 3.4-5.0 gm/dl Lipase 105 73-393 U/L Acute Abdominal Series: Was read by myself and the radiologist and shows no acute infiltrates, effusions or pneumothorax. Normal heart silhouette and bony anatomy. Abdominal component shows a nonobstructive bowel gas pattern with a moderate amount of stool within the colon and rectum and avascular necrosis of the left femoral head. Contrast Abdominal/Pelvic CT: Was reviewed by myself and read by the radiologist showing left colon diverticulosis with trace fluid along the posterior aspect of the mid to distal descending colon consistent with a possible mild acute diverticulitis, moderate amount of stool within the colon, normal-appearing appendix, no bowel obstruction, cholelithiasis without evidence of acute cholecystitis, avascular necrosis of the left femoral head without collapse and oral contrast within the distal esophagus which may reflect gastroesophageal reflux. Initially patient was hydrated with normal saline and received an albuterol/ Atrovent nebulizer breathing treatment, 4 mg of morphine IV for pain and 4 mg of Zofran IV. Patient was reassessed multiple times during her stay in the emergency department. Reevaluation after her breathing treatment patient had improved air movement and there was no extraneous noises of wheezing, rales or rhonchi. After patient returned from CT she received an additional 4 mg of morphine IV and 4 mg of Zofran IV. Patient's case was reviewed with Dr. Olguin; we agreed on diagnostic approach , treatment, disposition and plan. Patient was educated about today's findings and instructed on her treatment plan. She verbalized understanding and agreement with this plan. Clinical Impression: Diverticulitis. Asthma exacerbation. Decision-Making: Initially my differential diagnosis for her shortness of breath I considered asthma, pneumonia, acute coronary syndrome, pneumothorax, pulmonary embolism and for her abdominal pain I considered diverticulitis, bowel obstruction, constipation, colitis and other causes. Disposition: Patient discharged home in stable condition accompanied by her son ; prior to departure she was reassessed and subjectively reported she was feeling much better. She reported resolution of shortness of breath and rated her abdominal discomfort 5/10. Plan: Asthma exacerbation Patient was encouraged to continue her prednisone as prescribed. Patient was encouraged use 2 pulse of her albuterol inhaler or her DuoNeb every 4 hours for 5 days and as needed which shortness of breath/wheezing; additionally she was given a spacer and instructed on its use. Patient is encouraged to stay well-hydrated. Patient was encouraged to follow-up with family physician next week for recheck. Patient was encouraged to return to the ED for worsening/uncontrolled shortness of breath/wheezing, fevers, coughing up blood or any new/concerning symptoms. Diverticulitis Patient was placed on a sliding pain scale of ibuprofen, acetaminophen and [place] ; she was instructed on appropriate narcotic precautions and her name was checked on the state database and no red flags were noted. Patient was prescribed Augmentin 875 mg 2 times a day for 10 days for antibiotic coverage. Patient was encouraged to stay well-hydrated with increased clear fluids. Patient was encouraged to stay well-hydrated. Patient was encouraged to contact her PCP for follow-up early next week. Patient was encouraged return ED for worsening abdominal pain, bloody vomitus, bloody stools, fevers or any new/concerning symptoms.
== END 2017-07-14 11:46 | disposition home or self-care (01) ==
LOC: EDBD 07:15 → C.EDA 07:16
DX: K57.92 Diverticulitis of intestine, part unspecified, without perforation or abscess without bleeding (principal); J45.901 Unspecified asthma with (acute) exacerbation

== ENCOUNTER → 2017-07-20 | Outpatient (CLI) | payer OTHER ==
[~2017-07-20] MED LIST changes: +AMOX875T PO; +IPRASOL4 INH
== END | disposition home or self-care (01) ==
LOC: C.PATHSPEC 11:06
PROVIDERS: ATTEND Obstetrics & Gynecology
DX: R87.610 Atypical squamous cells of undetermined significance on cytologic smear of cervix (ASC-US) (principal); R87.810 Cervical high risk human papillomavirus (HPV) DNA test positive

== ENCOUNTER → 2017-07-20 | Outpatient (CLI) | payer OTHER | END | disposition home or self-care (01) | LOC: C.PAPS 11:09 | PROVIDERS: ATTEND Obstetrics & Gynecology | DX: R87.610 Atypical squamous cells of undetermined significance on cytologic smear of cervix (ASC-US) (principal) ==

== ENCOUNTER 2017-08-25 03:17 | Emergency (ER) | payer OTHER ==
[~2017-08-25] VITALS: Ht 149.9 cm; Wt 57.3 kg
[~2017-08-25 03:17] MED LIST changes: -AMOX875T PO
[2017-08-25] MEDS ORDERED: ALBUT/IPRATROP 3MG/0.5MG NEB 3 ML VIAL INH STA ×2 (03:22→04:16)
[2017-08-25 03:30] VITALS: TEMP 36.8; O2SAT 92; Ht 149.9 cm; Wt 57.3 kg
--- NOTE | 2017-08-25 04:22 | EMERGENCY ROOM VISIT NOTE ---
ED Visit Note First contact with patient: 03:18 Pt seen after discussion with the PA. Pt able to ambulate without significant increased WOB. Pt with hx of smoking, asthma/copd. Given neb tx and steroids here.
[2017-08-25 04:23] LABS: INFLUENZA B ANTIGEN Neg for Influ B (NEG)
[2017-08-25 04:58] LABS: INFLUENZA A PCR Neg for Influ A (NEG); INFLUENZA B PCR Neg for Influ B (NEG)
[2017-08-25 06:00] VITALS: BP 110/67; PULSE 89; O2SAT 92
--- NOTE | 2017-08-25 06:01 | EMERGENCY ROOM VISIT NOTE ---
History First contact with patient: 03:18 Chief Complaint: SHORTNESS OF BREATH Stated Complaint: SHORTNESS OF BREATH History of Present Illness The patient is a 57 year old female who presents to the Emergency Room with complaints of productive cough with green sputum, congestion and wheezing for the past day. Patient has asthma and tried her nebulizer with minimal improvement of symptoms. EMS gave her a nebulizer and Solu-Medrol. She states she feels slightly better. Patient denies chest pain, abdominal pain, headache , sore throat, sinus pain or congestion, vomiting, diarrhea, back pain. She continues to smoke. Last asthma flare was in June. Review of Systems See HPI for pertinent positives & negatives. A total of 10 systems reviewed and were otherwise negative. Past Medical/Surgical History Medical Problems: (1) Asthma Family History Asthma Social History Smoking Status: Current Every Day Smoker Alcohol Use: occasionally Drug Use: none Marital Status: Housing Status: lives with family Current/Historical Medications Scheduled Bupropion Hcl (Bupropion Hcl Er), 150 MG PO Q12 Famotidine (Pepcid), 20 MG PO DAILY Fluticasone Propionate (Flovent Hfa), 2 PUFFS INH BID Fluticasone Propionate (Nasal) (Flonase Allergy Relief), 1 SPRAY NA BID Ipratropium-Albuterol (Combivent Respimat), 1 PUFFS INH QID Ipratropium-Albuterol (Duoneb), 1 TREATMENT INH Q4H Loratadine (Claritin), 10 MG PO DAILY Scheduled PRN Albuterol Hfa (Ventolin Hfa), 2-4 PUFFS INH Q6H PRN for Shortness of Breath Physical Exam Vital Signs Date Time Temp Pulse Resp B/P (MAP) Pulse Ox O2 Delivery O2 Flow Rate FiO2 08/25/17 05:26 93 20 90 Room Air 08/25/17 05:01 96 20 108/70 91 Room Air 08/25/17 04:17 89 Room Air 08/25/17 03:30 36.8 81 20 128/95 92 Room Air 08/25/17 03:30 92 Room Air 08/25/17 03:30 92 Room Air Physical Exam PHYSICAL EXAM: Vital Signs: Reviewed Nurse's notes. Oxygen saturation was 82% on room air. GENERAL: Pleasant female, Alert, oriented and coherent. The patient is able to speak in complete sentences. NECK: Supple, non-tender. CHEST : Symmetrical expansion. no retractions no accessory muscle use. HEART: Regular rate and normal heart sounds, no murmur, gallop or rub. LUNGS: Breath sounds equal but significantly diminished in intensity on both sides. Bilateral wheezes heard but no rales or pleuritic rub. SKIN: The skin was without rashes, erythema, edema, or bruising. There is no tenting of the skin. Capillary reflex less than 2 seconds. HEAD: Normocephalic atraumatic. EARS: External auditory canals clear, tympanic membranes pearly latif without erythema or effusion bilaterally. EYES: Pupils equal round and reactive to light and accommodation. Conjunctivae without injection, sclerae without icterus. Extraocular movements intact. NOSE: Patent, turbinates without inflammation or discharge. No sinus tenderness. MOUTH: Mucous membranes moist. Pharynx without erythema or exudate. Uvula midline. Airway patent. Tongue does not deviate. ABDOMEN: Positive bowel sounds x 4. Normal tympanic percussion. Soft, nontender, without masses or organomegaly. Leija sign negative. No guarding or rebound tenderness. MUSCULOSKELETAL: No muscle atrophy, erythema, or edema noted. NEURO: Patient was alert and oriented to person place and time. Normal sensation to light and sharp touch. No focal neurological deficits. Medical Decision & Procedures Laboratory Results Test 08/25/17 03:24 Influenza Type A (RT-PCR) Neg for Influ A (NEG) Influenza Type A Antigen Neg for Influ A (NEG) Influenza Type B Antigen Neg for Influ B (NEG) Influenza Type B (RT-PCR) Neg for Influ B (NEG) Medications Administered Medications (Trade) Dose Ordered Sig/Eddie Route Start Time Stop Time Status Last Admin Dose Admin Albuterol/ Ipratropium (Duoneb) 3 ml NOW STAT INH 08/25/17 03:22 08/25/17 03:24 DC 08/25/17 03:29 3 ML Albuterol/ Ipratropium (Duoneb) 3 ml NOW STAT INH 08/25/17 04:16 08/25/17 04:18 DC 08/25/17 04:25 3 ML ED Course Prior records/ancillary studies reviewed. Triage Nursing notes reviewed. Additional history obtained from the EMS The patient's history was concerning for respiratory difficulties. Differential diagnosis: Etiologies such as infections, reactive airway disease, pneumonia, pneumothorax , COPD, CHF, cardiac ischemia, pulmonary embolism, musculoskeletal, gastrointestinal, as well as others were entertained. Physical examination: As above. ER treatment provided: Nebulizer On reassessment the patient felt better. Diagnostic interpretation by me: The labs revealed negative flu Imaging studies: Chest x-ray with no acute consolidation, pneumothorax or free air per my interpretation This appears to be consistent with asthmatic bronchitis. Patient's pulse ox normally hovers around 90-92 per chart review. She was strongly encouraged to quit smoking. Patient had no pneumonia on x-ray. She is well-appearing. She felt better after being medicated as above. She is advised to take medications as directed, rest, stay well-hydrated and follow-up family care in a few days or here in the ER sooner for chest pain, difficulty breathing, worsening signs or symptoms or as needed. By the evaluation outlined above emergent etiologies such as CHF, cardiac ischemia, pulmonary embolism, pneumonia, pneumothorax, musculoskeletal, serious bacterial infections, as well as others were deemed relatively unlikely. The pt informed about the findings as listed above. All questions were answered and pleased with the treatment. Return instructions were outlined and the patient was discharged in stable condition. Outpatient prescription management: Prednisone Referral: The patient was referred back to their primary care physician for follow-up in 2 to 3 days for a recheck of the current condition. Case reviewed with my attending Medical Decision As above Impression Primary Impression: Asthmatic bronchitis Departure Information Dispostion Home / Self-Care Condition GOOD Referrals Cooper Cosme D.O. (PCP) Patient Instructions My [facility] Additional Instructions Albuterol Inhaler: Take 2 puffs four times daily for five days, then as needed. Prednisone 50mg: Once daily until the prescription is finished. It is best to take this earlier in the day as some patients note occasional difficulty falling asleep when taken in the late evening. Azithromycin(Zithromax) 250mg: Take one a day for 4 additional days. All antibiotics can cause diarrhea. If this occurs and you feel worse or it does not resolve in 1-2 days follow up with your doctor or return to the Emergency Department as this could be signs of serious underlying problems. Any medication can cause an allergic reaction, stop the pills immediately and return to the ER for rash, hives, breathing difficulties, or swelling. Acetaminophen(Tylenol) may be used for fever or pain. Use 1000mg every six hours as needed. Avoid using more than 3000mg in a 24 hour period. (AND/OR) Ibuprofen(Motrin, Advil) may be used for fever or pain. Use 600mg every six hours as needed. Take with food. Avoid using more than 2400mg in a 24 hour period. Do not use 2400mg per day for more than three consecutive days without physician direction. Prolonged inappropriate use can lead to stomach upset or ulcers. Rest and drink plenty of fluids. Avoid smoke/smoking, fumes, dust, or any triggers in the past that may have affected your breathing. Continue current medications. Return to the ER for chest pain, difficulty breathing, fevers, vomiting, worsening of your condition, or as needed. Follow up with your primary physician this week for a recheck of your current condition. Problem Qualifiers Primary Impression: Asthmatic bronchitis Asthma severity: moderate Asthma persistence: persistent Asthma complication type: with acute exacerbation Qualified Codes: J45.41 - Moderate persistent asthma with (acute) exacerbation
[2017-08-25] MEDS ORDERED: PRED50TA PO (06:03)
--- NOTE | 2017-08-25 07:26 | DIAGNOSTIC IMAGING REPORT ---
CHEST 2 VIEWS ROUTINE CLINICAL HISTORY: cough/congestion COMPARISON STUDY: 07/14/2017 FINDINGS: The heart is normal in size. Underlying emphysema is suspected. There is no focal pulmonary consolidation. There is mild chronic interstitial prominence. A 1 cm opacity at the left lung base is felt to represent a summation. No corresponding nodule was visualized on the CT scan performed June 2017.[ IMPRESSION: 1. Emphysema 2. No evidence of acute parenchymal consolidation 3. Mild stable interstitial thickening 4. 1 cm opacity at the left lung base, likely representing a summation Electronically signed by: Matias Lopez M.D. 08/25/2017 7:24 AM Dictated Date/Time: 08/25/2017 7:23 AM
== END 2017-08-25 06:22 | disposition home or self-care (01) ==
LOC: EDBD 03:17 → C.EDB 03:18
DX: J45.41 Moderate persistent asthma with (acute) exacerbation (principal); F17.210 Nicotine dependence, cigarettes, uncomplicated; Z79.899 Other long term (current) drug therapy

== ENCOUNTER 2017-11-13 12:22 | Inpatient (IN) | payer OTHER ==
[~2017-11-13] VITALS: Ht 149.9 cm; Wt 51.7 kg
[~2017-11-13 12:22] MED LIST changes: -PRED10TA PO
[2017-11-13] MEDS ORDERED: ACETAMINOPHEN 500 MG TAB PO STA (12:53)
[2017-11-13] MEDS ORDERED: METHYLPREDNISOLONE 125 MG VIAL IV STA (12:53)
[2017-11-13] MEDS ORDERED: PIPERACILLIN/TAZOBACTAM 4.5 GM/100ML D5W IV STA (12:53)
[2017-11-13] MEDS ORDERED: SODIUM CHLORIDE 0.9% 1000ML 500 ML IV STA (12:53)
[2017-11-13] MEDS ORDERED: ALBUT/IPRATROP 3MG/0.5MG NEB 3 ML VIAL INH STA (12:53)
[2017-11-13] MEDS ORDERED: KETOROLAC TROMETHAMINE 30 MG/ML VIAL IV STA (12:53)
--- NOTE | 2017-11-13 13:07 | DIAGNOSTIC IMAGING REPORT ---
SINGLE VIEW CHEST CLINICAL HISTORY: Dyspnea. FINDINGS: An AP, portable, upright chest radiograph is compared to study dated 08/25/2017 and correlated with chest CT dated 07/08/2017. The examination is degraded by portable technique and patient rotation. The cardiomediastinal silhouette is unremarkable. Emphysema and chronic interstitial thickening are similar to previous. There is mild bibasilar atelectasis. The lungs and pleural spaces are otherwise clear. No pneumothorax is seen. The skeletal structures are osteopenic. The bony thorax is grossly intact. IMPRESSION: Emphysema with no acute cardiopulmonary abnormality. Electronically signed by: Zhen Frausto M.D. 11/13/2017 1:06 PM Dictated Date/Time: 11/13/2017 1:05 PM
--- NOTE | 2017-11-13 13:39 | EMERGENCY ROOM VISIT NOTE ---
History Report prepared by Kayy: Wallace Watters Under the Supervision of: Dr. Zhen Black M.D. First contact with patient: 12:44 Chief Complaint: RESPIRATORY PROBLEMS Stated Complaint: SINUS INFECTION,ASTHMA Nursing Triage Summary: pt reports she asthma having difficulty breathing started sunday . using inhalers and neb tx no reliefpain in head and in chest from breathing History of Present Illness The patient is a 57 year old female who presents to the Emergency Room with complaints of a worsening headache that began four days ago. She rates her pain as a 10/10 in severity. The patient states that she developed a sinus headache four days ago that worsened over time. She reports that a couple of days ago her pain radiated down into her chest. The patient states that she has also been experiencing chills, a nonproductive cough, ear aches, and a sore throat. The patient states that she becomes short of breath whenever she becomes ill and admits that she is currently feeling short of breath. She reports that she has been using her nebulizer for her symptoms without any relief. The patient denies wearing oxygen at home, sick contacts, a flu shot. She reports a history of asthma and states that she has had multiple flair ups in the past. The patient also reports a history of pneumonia a couple of years ago. Source of History: patient Onset: four days ago Position: head Symptom Intensity: 10/10 Quality: ache Timing: worsening Modifying Factors (Relieving): other (nebulizer) Associated Symptoms: + chills, + sorethroat, + cough, + chest pain, + SOB Note: Associated symptoms: ear aches Review of Systems See HPI for pertinent positives & negatives. A total of 10 systems reviewed and were otherwise negative. Past Medical & Surgical Medical Problems: (1) Asthma (2) Pneumonia Family History Asthma Social History Smoking Status: Current Every Day Smoker Alcohol Use: occasionally Drug Use: none Marital Status: Housing Status: lives with family Current/Historical Medications Scheduled Famotidine (Pepcid), 20 MG PO DAILY Fluticasone Propionate (Flovent Hfa), 2 PUFFS INH BID Fluticasone Propionate (Nasal) (Flonase Allergy Relief), 1 SPRAY NA BID Ipratropium-Albuterol (Combivent Respimat), 1 PUFFS INH QID Ipratropium-Albuterol (Duoneb), 1 TREATMENT INH Q4H Loratadine (Claritin), 10 MG PO DAILY Scheduled PRN Albuterol Hfa (Ventolin Hfa), 2-4 PUFFS INH Q6H PRN for Shortness of Breath Allergies Coded Allergies: No Known Allergies (Unverified , 11/13/17) Physical Exam Vital Signs Date Time Temp Pulse Resp B/P (MAP) Pulse Ox O2 Delivery O2 Flow Rate FiO2 11/13/17 15:01 114/69 11/13/17 14:47 89 24 93 11/13/17 14:42 91 26 94 11/13/17 14:32 119/64 11/13/17 14:12 101 22 92 11/13/17 14:01 112/74 11/13/17 13:42 99 21 11/13/17 13:38 91 11/13/17 13:37 101 18 97 Nasal Cannula 0.5 11/13/17 13:35 100/71 11/13/17 13:31 1.0 11/13/17 13:31 100 Room Air 11/13/17 12:34 37.3 107 28 113/75 82 Room Air Physical Exam GENERAL: Patient is in no acute distress. HEENT: No acute trauma, normocephalic atraumatic, mucous membranes moist, no nasal congestion, no scleral icterus, throat erythema without exudate. NECK: No stridor, no adenopathy, no meningismus, trachea is midline. LUNGS: Decreased breath sounds bilaterally, wheezing and rhonchi bilaterally, moist cough noted, short of breath with speaking. HEART: Without murmurs gallops or rubs, regular rate and rhythm. ABDOMEN: Soft, nontender, bowel sounds positive, no hernias, no peritonitis. EXTREMITIES: No cyanosis or edema, full range of motion of all the joints without pain or difficulty, no signs for acute trauma. NEUROLOGIC: Oriented x 3, no acute motor or sensory deficits, no focal weakness. SKIN: No rash, no jaundice, no diaphoresis. Medical Decision & Procedures ER Provider Diagnostic Interpretation: X-ray results as stated below per interpretation by me and the radiologist: SINGLE VIEW CHEST CLINICAL HISTORY: Dyspnea. FINDINGS: An AP, portable, upright chest radiograph is compared to study dated 08/25/2017 and correlated with chest CT dated 07/08/2017. The examination is degraded by portable technique and patient rotation. The cardiomediastinal silhouette is unremarkable. Emphysema and chronic interstitial thickening are similar to previous. There is mild bibasilar atelectasis. The lungs and pleural spaces are otherwise clear. No pneumothorax is seen. The skeletal structures are osteopenic. The bony thorax is grossly intact. IMPRESSION: Emphysema with no acute cardiopulmonary abnormality. Electronically signed by: Zhen Frausto M.D. 11/13/2017 1:06 PM Dictated Date/Time: 11/13/2017 1:05 PM Laboratory Results 11/13/17 13:20 Red Blood Count 3.99, Mean Corpuscular Volume 90.7, Mean Corpuscular Hemoglobin 31.3, Mean Corpuscular Hemoglobin Concent 34.5, Mean Platelet Volume 8.6, Neutrophils (%) (Auto) 55.5, Lymphocytes (%) (Auto) 32.8, Monocytes (%) (Auto) 10.1, Eosinophils (%) (Auto) 0.5, Basophils (%) (Auto) 1.1, Neutrophils # (Auto ) 1.05, Lymphocytes # (Auto) 0.62, Monocytes # (Auto) 0.19, Eosinophils # (Auto ) 0.01, Basophils # (Auto) 0.02 11/13/17 13:20 Test 11/13/17 13:20 White Blood Count 1.89 K/uL (4.8-10.8) Red Blood Count 3.99 M/uL (4.2-5.4) Hemoglobin 12.5 g/dL (12.0-16.0) Hematocrit 36.2 % (37-47) Mean Corpuscular Volume 90.7 fL (80-100) Mean Corpuscular Hemoglobin 31.3 pg (25-34) Mean Corpuscular Hemoglobin Concent 34.5 g/dl (32-36) Platelet Count 287 K/uL (130-400) Mean Platelet Volume 8.6 fL (7.4-10.4) Neutrophils (%) (Auto) 55.5 % Lymphocytes (%) (Auto) 32.8 % Monocytes (%) (Auto) 10.1 % Eosinophils (%) (Auto) 0.5 % Basophils (%) (Auto) 1.1 % Neutrophils # (Auto) 1.05 K/uL (1.4-6.5) Lymphocytes # (Auto) 0.62 K/uL (1.2-3.4) Monocytes # (Auto) 0.19 K/uL (0.11-0.59) Eosinophils # (Auto) 0.01 K/uL (0-0.5) Basophils # (Auto) 0.02 K/uL (0-0.2) RDW Standard Deviation 47.2 fL (36.4-46.3) RDW Coefficient of Variation 14.3 % (11.5-14.5) Immature Granulocyte % (Auto) 0.0 % Immature Granulocyte # (Auto) 0.00 K/uL (0.00-0.02) Toxic Vacuolation 1+ Prothrombin Time 10.0 SECONDS (9.0-12.0) Prothromb Time International Ratio 1.0 (0.9-1.1) Activated Partial Thromboplast Time 28.2 SECONDS (21.0-31.0) Partial Thromboplastin Ratio 1.1 Anion Gap 5.0 mmol/L (3-11) Est Creatinine Clear Calc Drug Dose 73.5 ml/min Estimated GFR () 119.6 Estimated GFR (Non- 103.2 BUN/Creatinine Ratio 5.8 (10-20) Lactic Acid Level 1.2 mmol/L (0.4-2.0) Calcium Level 8.5 mg/dl (8.5-10.1) Total Bilirubin 0.3 mg/dl (0.2-1) Aspartate Amino Transf (AST/SGOT) 85 U/L (15-37) Alanine Aminotransferase (ALT/SGPT) 53 U/L (12-78) Alkaline Phosphatase 620 U/L (45-117) Troponin I < 0.015 ng/ml (0-0.045) Total Protein 7.6 gm/dl (6.4-8.2) Albumin 3.3 gm/dl (3.4-5.0) Globulin 4.3 gm/dl (2.5-4.0) Albumin/Globulin Ratio 0.8 (0.9-2) Influenza Type A (RT-PCR) POS for Influ A (NEG) Influenza Type B (RT-PCR) Neg for Influ B (NEG) Laboratory results reviewed by me. Medications Administered Medications (Trade) Dose Ordered Sig/Eddie Route Start Time Stop Time Status Last Admin Dose Admin Sodium Chloride 500 ml @ 999 mls/hr Q31M STAT IV 11/13/17 12:53 11/13/17 13:23 DC 11/13/17 13:30 999 MLS/HR Methylprednisolone Sodium Succinate (Solu-Medrol IV) 80 mg NOW STAT IV 11/13/17 12:53 11/13/17 12:57 DC 11/13/17 13:28 80 MG Acetaminophen (Tylenol Tab) 1,000 mg NOW STAT PO 11/13/17 12:53 11/13/17 12:57 DC 11/13/17 13:30 1,000 MG Albuterol/ Ipratropium (Duoneb) 3 ml NOW STAT INH 11/13/17 12:53 11/13/17 12:57 DC 11/13/17 13:28 3 ML Piperacillin Sod/ Tazobactam Sod (Zosyn Iv) 4.5 gm NOW STAT IV 11/13/17 12:53 11/13/17 12:57 DC 11/13/17 13:28 4.5 GM Ketorolac Tromethamine (Toradol Inj) 30 mg NOW STAT IV 11/13/17 12:53 11/13/17 12:57 DC 11/13/17 13:29 30 MG Albuterol/ Ipratropium (Duoneb) 3 ml Q6R NEB 11/13/17 15:00 12/13/17 14:59 11/13/17 15:50 3 ML ECG Per My Interpretation Indication: SOB/dyspnea Rate (beats per minute): 100 Rhythm: normal sinus Findings: other (No PVCs, No ST elevation) ED Course 1248: The patient was evaluated in room B08. A complete history and physical exam was performed. 1253: Ordered Toradol Injection 30 mg IV, Zosyn 4.5 gm IV, Duoneb 3 ml INH, Tylenol Tab 1000 mg PO, Solu-Medrol 80 mg IV, Sodium Chloride 500 ml @ 999 mls/ hr IV. 1424: I reevaluated the patient and updated her on her results. I discussed the treatment plan, which she agrees to. The patient will be further evaluated. 1440: I discussed the patient's case with Dr. Salmeron, [facility] Hospitalist. He understands the patient's condition and agrees to accept the patient. The patient will be further evaluated. 1530: Ordered Tamiflu Cap 75 mg PO. Medical Decision The patient is a 57 year old female who presents to the Emergency Room with complaints of a worsening headache that began four days ago. Differential diagnoses considered include pneumonia or bronchitis, strep pharyngitis, sinusitis, influenza or flu like illness, bronchitis, dehydration, electrolyte imbalance, sepsis, anemia. There is no leukocytosis or concerning anemia. The white count is actually low which could indicate a viral illness. No significant electrolyte abnormality or kidney failure. There were a few liver enzyme elevations. Rapid strep testing is negative. Chest film did not show pneumonia, CHF or pneumothorax. EKG showed a sinus rhythm, no acute ischemia. Cardiac enzyme testing 1 is not consistent with acute cardiac injury. Lactic acid level is not elevated making severe sepsis less likely. Influenza testing was positive for influenza A. The patient received a DuoNeb, Tamiflu orally, IV Solu-Medrol and IV Zosyn. Patient received IV Toradol and oral Tylenol. Patient received IV saline. The patient feels improved. She presents hypoxic. She has influenza and this has caused a flare of her lung disease I do think a hospital stay is warranted. I spoke to the patient and case management. The on-call hospitalist was consulted and we did discuss the case. Medication Reconcilliation Current Medication List: was personally reviewed by me Blood Pressure Screening Patient's blood pressure: Normal blood pressure Consults Time Called: 1425 Consulting Physician: Dr. Salmeron, [facility] Hospitalist Returned Call: 1440 I discussed the patient's case with Dr. Salmeron, [facility] Hospitalist. He understands the patient's condition and agrees to accept the patient. The patient will be further evaluated. Impression Primary Impression: Hypoxia Additional Impressions: Acute bronchitis Exacerbation of asthma Influenza A Scribe Attestation The scribe's documentation has been prepared under my direction and personally reviewed by me in its entirety. I confirm that the note above accurately reflects all work, treatment, procedures, and medical decision making performed by me. Departure Information Dispostion Being Evaluated By Hospitalist Referrals No Doctor, Assigned (PCP) Patient Instructions My [facility] Problem Qualifiers
[2017-11-13 14:03] LABS: HEMATOCRIT 36.2 % (37-47); HEMOGLOBIN 12.5 g/dL (12.0-16.0); MEAN CELL VOLUME 90.7 fL (80-100); MEAN CORPUSCULAR HEMOGLOBIN 31.3 pg (25-34); MEAN CORPUSCULAR HGB CONC 34.5 g/dl (32-36); MEAN PLATELET VOLUME 8.6 fL (7.4-10.4); PLATELET COUNT 287 K/uL (130-400); RED CELL DISTRIBUTION WIDTH CV 14.3 % (11.5-14.5); RED CELL DISTRIBUTION WIDTH SD 47.2 fL (36.4-46.3); WHITE BLOOD COUNT 1.89 K/uL (4.8-10.8)
[2017-11-13 14:07] LABS: BLOOD UREA NITROGEN 3 mg/dl (7-18); CREATININE 0.59 mg/dl (0.60-1.20); GLUCOSE 83 mg/dl (70-99)
[2017-11-13 14:08] LABS: ALBUMIN 3.3 gm/dl (3.4-5.0); ALT/SGPT 53 U/L (12-78); CALCIUM 8.5 mg/dl (8.5-10.1); CARBON DIOXIDE 29 mmol/L (21-32); POTASSIUM 3.4 mmol/L (3.5-5.1); SODIUM 135 mmol/L (136-145)
[2017-11-13 14:12] LABS: ALKALINE PHOSPHATASE 620 U/L (45-117); AST/SGOT 85 U/L (15-37); TOTAL PROTEIN 7.6 gm/dl (6.4-8.2)
[2017-11-13 14:46] LABS: BASO % 1.1 %; BASO ABS # 0.02 K/uL (0-0.2); EOS % 0.5 %; EOS ABS # 0.01 K/uL (0-0.5); LYMPH % 32.8 %; LYMPH ABS # 0.62 K/uL (1.2-3.4); MONO % 10.1 %; MONO ABS # 0.19 K/uL (0.11-0.59); NEUT % 55.5 %; NEUT ABS # 1.05 K/uL (1.4-6.5)
[2017-11-13] MEDS ORDERED: MAGNESIUM HYDROXIDE SUSP 30 ML UDC PO PRN (15:00)
[2017-11-13] MEDS ORDERED: ONDANSETRON INJ 2 MG/ML 2 ML VIAL IV PRN (15:00)
[2017-11-13] MEDS ORDERED: ALUMINUM/MAGNESIUM/SIMETH (MAALOX MAX) 30 ML UDC PO PRN (15:00)
[2017-11-13 15:15] LABS: INFLUENZA A PCR POS for Influ A (NEG); INFLUENZA B PCR Neg for Influ B (NEG)
--- NOTE | 2017-11-13 15:27 | History and Physical ---
History & Physical Date & Time of Service: Nov 13, 2017 at 15:19 Chief Complaint: Sinus Infection,Asthma Primary Care Physician: No Doctor, Assigned History of Present Illness 57-year-old female suffers from asthma but does continue to smoke she does follow with pulmonary medicine see Kristi Fernandez. The patient's had increasing respiratory distress for about 5 days. Patient reports that she had a liver biopsy at [facility] last week when they afterwards she became short of breath and continues to feel that way. She has a nonproductive cough she claims to have some chills at home. She states she has been around no other ill contacts. She is up and on steroids since the fall when she had an upper respiratory infection. She has not had the flu shot and currently has flu PCR pending she has no infiltrates on chest x-ray. But is having mild respiratory distress using accessory muscles of breathing and speaking in short sentences in the room today Past Medical/Surgical History Medical Problems: (1) Asthma (2) Asthma attack (3) Asthma exacerbation (4) Asthma exacerbation (5) Asthma exacerbation (6) Asthma exacerbation with COPD (chronic obstructive pulmonary disease) (7) Asthmatic bronchitis (8) Diverticulitis (9) Dizziness (10) Hypoxia (11) Left lower lobe pneumonia (12) Neutropenia (13) Palpitations (14) Pneumonia (15) Shortness of breath Family History Asthma Social History Smoking Status: Current Every Day Smoker Drug Use: none Marital Status: Allergies Coded Allergies: No Known Allergies (Unverified , 11/13/17) Home Medications Scheduled Famotidine (Pepcid), 20 MG PO DAILY Fluticasone Propionate (Flovent Hfa), 2 PUFFS INH BID Fluticasone Propionate (Nasal) (Flonase Allergy Relief), 1 SPRAY NA BID Ipratropium-Albuterol (Combivent Respimat), 1 PUFFS INH QID Ipratropium-Albuterol (Duoneb), 1 TREATMENT INH Q4H Loratadine (Claritin), 10 MG PO DAILY Scheduled PRN Albuterol Hfa (Ventolin Hfa), 2-4 PUFFS INH Q6H PRN for Shortness of Breath Review of Systems ROS: well nourished well developed. No double vision blurry vision No problems with speech or swallowing No palpitations, chest pain or pressure Patient has no wheezing but has decreased breath sounds throughout taking small breaths when forced expiration she does have some wheezing She has a cough which is been without production No abdominal pain nausea vomiting diarrhea changes in appetite or weight No burning urine urine frequency or changes in color No focal joint pain or muscle pain No skin rashes or oral lesions No unusual bruising or bleeding No focused back pain or numbness or loss of strength No changes in memory or confusion Physical Exam Vital Signs Date Time Temp Pulse Resp B/P (MAP) Pulse Ox O2 Delivery O2 Flow Rate FiO2 11/13/17 14:42 91 26 94 11/13/17 14:32 119/64 11/13/17 14:12 101 22 92 11/13/17 14:01 112/74 11/13/17 13:42 99 21 11/13/17 13:38 91 11/13/17 13:37 101 18 97 Nasal Cannula 0.5 11/13/17 13:35 100/71 11/13/17 13:31 1.0 11/13/17 13:31 100 Room Air 11/13/17 12:34 37.3 107 28 113/75 82 Room Air General Appearance: WD/WN, + mild distress, + thin Head: normocephalic, atraumatic Eyes: normal inspection, sclerae normal ENT: + pharyngeal erythema, + pertinent finding (There are no exudates or thrush) Neck: supple, no JVD Respiratory/Chest: + decreased breath sounds, + accessory muscle use Cardiovascular: regular rate, rhythm, no murmur Abdomen/GI: normal bowel sounds, non tender, soft, + pertinent finding (The area of liver biopsy was examined there is just a small remnant of the scar there she is no overt hepatomegaly or any other abnormality felt about her abdomen) Back: no muscle spasm, normal range of motion Extremities/Musculoskelatal: no pedal edema, normal range of motion Neurologic/Psych: alert, oriented x 3 Skin: normal color, warm/dry, no rash Diagnostics Laboratory Results Results Past 24 Hours Test 11/13/17 13:20 11/13/17 15:17 Range/Units White Blood Count 1.89 4.8-10.8 K/uL Red Blood Count 3.99 4.2-5.4 M/uL Hemoglobin 12.5 12.0-16.0 g/dL Hematocrit 36.2 37-47 % Mean Corpuscular Volume 90.7 80-100 fL Mean Corpuscular Hemoglobin 31.3 25-34 pg Mean Corpuscular Hemoglobin Concent 34.5 32-36 g/dl Platelet Count 287 130-400 K/uL Mean Platelet Volume 8.6 7.4-10.4 fL Neutrophils (%) (Auto) 55.5 % Lymphocytes (%) (Auto) 32.8 % Monocytes (%) (Auto) 10.1 % Eosinophils (%) (Auto) 0.5 % Basophils (%) (Auto) 1.1 % Neutrophils # (Auto) 1.05 1.4-6.5 K/uL Lymphocytes # (Auto) 0.62 1.2-3.4 K/uL Monocytes # (Auto) 0.19 0.11-0.59 K/uL Eosinophils # (Auto) 0.01 0-0.5 K/uL Basophils # (Auto) 0.02 0-0.2 K/uL RDW Standard Deviation 47.2 36.4-46.3 fL RDW Coefficient of Variation 14.3 11.5-14.5 % Immature Granulocyte % (Auto) 0.0 % Immature Granulocyte # (Auto) 0.00 0.00-0.02 K/uL Toxic Vacuolation 1+ Sodium Level 135 136-145 mmol/L Potassium Level 3.4 3.5-5.1 mmol/L Chloride Level 101 98-107 mmol/L Carbon Dioxide Level 29 21-32 mmol/L Anion Gap 5.0 3-11 mmol/L Blood Urea Nitrogen 3 7-18 mg/dl Creatinine 0.59 0.60-1.20 mg/dl Est Creatinine Clear Calc Drug Dose 73.5 ml/min Estimated GFR () 119.6 Estimated GFR (Non- 103.2 BUN/Creatinine Ratio 5.8 10-20 Random Glucose 83 70-99 mg/dl Lactic Acid Level 1.2 0.4-2.0 mmol/L Calcium Level 8.5 8.5-10.1 mg/dl Total Bilirubin 0.3 0.2-1 mg/dl Aspartate Amino Transf (AST/SGOT) 85 15-37 U/L Alanine Aminotransferase (ALT/SGPT) 53 12-78 U/L Alkaline Phosphatase 620 45-117 U/L Troponin I < 0.015 0-0.045 ng/ml Total Protein 7.6 6.4-8.2 gm/dl Albumin 3.3 3.4-5.0 gm/dl Globulin 4.3 2.5-4.0 gm/dl Albumin/Globulin Ratio 0.8 0.9-2 Influenza Type A (RT-PCR) POS for Influ A NEG Influenza Type B (RT-PCR) Neg for Influ B NEG Microbiology Results 11/13/17 Blood Culture, Received Pending 11/13/17 Blood Culture, Received Pending 11/13/17 Group A Streptococcus Screen - Final, Resulted SPECIMEN NEGATIVE FOR GROUP A BETA ST... 11/13/17 Group A Streptococcus Screen (JENELLE), Resulted Pending CXR normal (There is no sign of pneumothorax or effusion) Normal EKG Impression Assessment and Plan 57-year-old female likely COPD with history of asthma who continues to smoke presents with acute respiratory failure with hypoxia For acute respiratory failure with hypoxia we will supplement oxygen use Solu- Medrol 40 IV every 12 DuoNeb therapy and formoterol For the possibility this is a bronchitis exacerbation levofloxacin is given we are currently pending influenza PCR Tobacco cessation counseling was performed in the ER will continue to order this in hospital For history of transaminitis will trend her transaminases here if this is not an active issue she can continue to follow-up with Dr. Melton at [facility] Hypokalemia present on admission likely may be worse by inhaled bronchodilators. will augment orally check potassium in the morning as well as magnesium Lovenox therapy for DVT prevention Resuscitation Status VTE Prophylaxis Will order VTE Prophylaxis: Yes
[2017-11-13] MEDS ORDERED: OSELTAMIVIR PHOSPHATE 75 MG CAP PO STA ×2 (15:30→16:18)
[2017-11-13] MEDS: ALBUT/IPRATROP 3MG/0.5MG NEB 3 ML VIAL NEB SCH ×2 (15:50→20:16)
[2017-11-13 15:52] VITALS: Ht 149.9 cm; Wt 51.7 kg
[2017-11-13 16:59] LABS: PTT PATIENT 28.2 SECONDS (21.0-31.0)
[2017-11-13] MEDS ORDERED: SODIUM CHLORIDE 0.9% 1000ML 1,000 ML IV SCH (17:30)
[2017-11-13 17:42] VITALS: BP 107/71; PULSE 98; TEMP 37.1; O2SAT 90
[2017-11-13] MEDS ORDERED: LEVAQUIN 750MG / 150ML D5W IV SCH (18:00)
[2017-11-13] MEDS: LEVOFLOXACIN 750MG / D5W IV SCH (18:04)
[2017-11-13] MEDS: ENOXAPARIN 40 MG/0.4 ML SYR SQ SCH (18:05)
[2017-11-13] MEDS: FORMOTEROL FUMA NEBULIZER SOLN 20 MCG/2 ML VIAL INH SCH (20:16)
[2017-11-13 20:17] VITALS: PULSE 100; O2SAT 92
[2017-11-13] MEDS: METHYLPREDNISOLONE IV 40 MG in SYRINGE 0 ML IV SCH (21:21)
[2017-11-13] MEDS: ACETAMINOPHEN 325 MG TAB PO PRN (21:21)
[2017-11-13] MEDS: OSELTAMIVIR PHOSPHATE 75 MG CAP PO SCH (21:22)
[2017-11-13] MEDS: GUAIFENESIN 600 MG TABCR PO SCH (21:22)
[2017-11-13] MEDS: POTASSIUM CHLORIDE 20 MEQ TABCR PO SCH (21:23)
[2017-11-13 23:22] VITALS: BP 109/59; PULSE 81; TEMP 36.5; O2SAT 90
[2017-11-14] VITALS (8 sets, daily range): BP systolic 108–138; BP diastolic 70–73; PULSE 68–98; TEMP 36.4–36.8; O2SAT 91–99
[2017-11-14] MEDS: ALBUT/IPRATROP 3MG/0.5MG NEB 3 ML VIAL NEB SCH ×2 (01:19→07:01)
[2017-11-14] MEDS: ACETAMINOPHEN 325 MG TAB PO PRN ×2 (05:20→15:34)
[2017-11-14] MEDS: FORMOTEROL FUMA NEBULIZER SOLN 20 MCG/2 ML VIAL INH SCH ×2 (07:01→20:00)
[2017-11-14] MEDS: GUAIFENESIN 600 MG TABCR PO SCH ×2 (07:22→21:00)
[2017-11-14] MEDS: POTASSIUM CHLORIDE 20 MEQ TABCR PO SCH ×2 (07:22→21:00)
[2017-11-14] MEDS: OSELTAMIVIR PHOSPHATE 75 MG CAP PO SCH ×2 (07:23→21:00)
[2017-11-14] MEDS: METHYLPREDNISOLONE IV 40 MG in SYRINGE 0 ML IV SCH ×2 (08:28→21:00)
[2017-11-14 08:49] LABS: HEMATOCRIT 34.5 % (37-47); HEMOGLOBIN 11.6 g/dL (12.0-16.0); MEAN CELL VOLUME 90.6 fL (80-100); MEAN CORPUSCULAR HEMOGLOBIN 30.4 pg (25-34); MEAN CORPUSCULAR HGB CONC 33.6 g/dl (32-36); MEAN PLATELET VOLUME 8.5 fL (7.4-10.4); PLATELET COUNT 239 K/uL (130-400); RED CELL DISTRIBUTION WIDTH CV 14.7 % (11.5-14.5); RED CELL DISTRIBUTION WIDTH SD 48.3 fL (36.4-46.3); WHITE BLOOD COUNT 1.41 K/uL (4.8-10.8)
[2017-11-14 09:00] LABS: CALCIUM 8.6 mg/dl (8.5-10.1); CREATININE 0.73 mg/dl (0.60-1.20); PHOSPHORUS 2.5 mg/dl (2.5-4.9); POTASSIUM 3.8 mmol/L (3.5-5.1)
[2017-11-14 09:33] LABS: BASO % 2.1 %; BASO ABS # 0.03 K/uL (0-0.2); LYMPH % 39.7 %; LYMPH ABS # 0.56 K/uL (1.2-3.4); MONO % 7.1 %; NEUT % 51.1 %; NEUT ABS # 0.72 K/uL (1.4-6.5)
--- NOTE | 2017-11-14 11:20 | Hospitalist Progress Note ---
Hospitalist Progress Note Date of Service Nov 14, 2017. Subjective Pt evaluation today including: conversation w/ patient, physical exam, chart review, lab review, review of studies, review of inpatient medication list Patient seen and evaluated. No acute events overnight. Patient reporting feeling significantly better. Continues with non-productive cough. Denies SOB. States she has ambulated in the room without dyspnea. Generalized weakness almost resolved. Having some hip pain but denies other muscle aches. Tolerating diet at this time. Constitutional: No fever, No chills Respiratory: + cough, No sputum, No dyspnea on exertion, No dyspnea at rest Cardiovascular: No chest pain, No palpitations Abdomen: No pain, No nausea, No vomiting, No diarrhea, No constipation Musculoskeletal: + joint pain (R hip), No calf pain Female : No dysuria Heme: No abnormal bleeding/bruising Skin: No rash Medications Current Inpatient Medications Medications (Trade) Dose Ordered Sig/Eddie Route Start Time Stop Time Status Last Admin Dose Admin Enoxaparin Sodium (Lovenox Inj) 40 mg Q24H SQ 11/13/17 18:00 12/13/17 17:59 11/13/17 18:05 40 MG Acetaminophen (Tylenol Tab) 650 mg Q4H PRN PO 11/13/17 15:00 12/13/17 14:59 11/14/17 05:20 650 MG Al Hydrox/Mg Hydrox/Simethicone (Maalox Max Susp) 15 ml Q4H PRN PO 11/13/17 15:00 12/13/17 14:59 Magnesium Hydroxide (Milk Of Magnesia Susp) 30 ml Q6H PRN PO 11/13/17 15:00 12/13/17 14:59 Ondansetron HCl (Zofran Inj) 4 mg Q6H PRN IV 11/13/17 15:00 12/13/17 14:59 Formoterol Fumarate (Perforomist 20MCG/2ML Neb Soln) 20 mcg Q12R INH 11/13/17 20:00 12/13/17 19:59 11/14/17 07:01 20 MCG Albuterol/ Ipratropium (Duoneb) 3 ml Q6R NEB 11/13/17 15:00 12/13/17 14:59 11/14/17 01:19 3 ML Methylprednisolone Sodium Succinate 40 mg/Syringe 0.64 ml @ 1.5 mls/min BID IV 11/13/17 21:00 12/13/17 20:59 11/14/17 08:28 1.5 MLS/MIN Potassium Chloride (Klor-Con Tab) 20 meq BID PO 11/13/17 21:00 11/14/17 21:01 11/14/17 07:22 20 MEQ Guaifenesin (Mucinex Contr Rel Tab) 1,200 mg Q12 PO 11/13/17 21:00 12/13/17 20:59 11/14/17 07:22 1,200 MG Oseltamivir Phosphate (Tamiflu Cap) 75 mg BID PO 11/13/17 21:00 11/18/17 20:59 11/14/17 07:23 75 MG Levofloxacin 750 mg/Prmx 150 ml @ 100 mls/hr Q24H IV 11/13/17 18:00 11/20/17 17:59 11/13/17 18:04 100 MLS/HR Albuterol/ Ipratropium (Duoneb) 3 ml QIDR INH 11/14/17 12:00 12/14/17 11:59 UNV Objective Vital Signs Date Time Temp Pulse Resp B/P (MAP) Pulse Ox O2 Delivery O2 Flow Rate FiO2 11/14/17 08:56 36.4 68 20 138/73 (94) 98 Room Air 11/14/17 08:00 Room Air 11/14/17 07:02 98 17 98 Room Air 11/14/17 01:19 98 20 92 Room Air 11/14/17 00:00 Room Air 11/13/17 23:22 36.5 81 20 109/59 (76) 90 Room Air 11/13/17 20:17 100 20 92 Room Air 11/13/17 17:42 37.1 98 22 107/71 (83) 90 Room Air 11/13/17 17:30 37.3 88 32 114/69 92 11/13/17 15:52 Nasal Cannula 11/13/17 15:17 88 32 92 11/13/17 15:01 114/69 11/13/17 14:47 89 24 93 11/13/17 14:42 91 26 94 11/13/17 14:32 119/64 11/13/17 14:12 101 22 92 3/27/18 14:01 112/74 11/13/17 13:42 99 21 11/13/17 13:38 91 11/13/17 13:37 101 18 97 Nasal Cannula 0.5 11/13/17 13:35 100/71 11/13/17 13:31 1.0 11/13/17 13:31 100 Room Air 11/13/17 12:34 37.3 107 28 113/75 82 Room Air Physical Exam General Appearance: WD/WN, no apparent distress Eyes: sclerae normal ENT: hearing grossly normal Neck: supple, no JVD, trachea midline Respiratory/Chest: no respiratory distress, no accessory muscle use, + decreased breath sounds (bases b/l - but poor inspiratory air flow), + rhonchi ( R base) Cardiovascular: regular rate, rhythm, no gallop, no murmur Abdomen: normal bowel sounds, non tender, soft Extremities: no pedal edema, no calf tenderness Neurologic/Psychiatric: alert, oriented x 3 Skin: normal color, warm/dry Laboratory Results Last 24 Hours Test 11/13/17 13:20 11/14/17 03:37 11/14/17 08:27 White Blood Count 1.89 K/uL 1.41 K/uL Red Blood Count 3.99 M/uL 3.81 M/uL Hemoglobin 12.5 g/dL 11.6 g/dL Hematocrit 36.2 % 34.5 % Mean Corpuscular Volume 90.7 fL 90.6 fL Mean Corpuscular Hemoglobin 31.3 pg 30.4 pg Mean Corpuscular Hemoglobin Concent 34.5 g/dl 33.6 g/dl Platelet Count 287 K/uL 239 K/uL Mean Platelet Volume 8.6 fL 8.5 fL Neutrophils (%) (Auto) 55.5 % 51.1 % Lymphocytes (%) (Auto) 32.8 % 39.7 % Monocytes (%) (Auto) 10.1 % 7.1 % Eosinophils (%) (Auto) 0.5 % 0.0 % Basophils (%) (Auto) 1.1 % 2.1 % Neutrophils # (Auto) 1.05 K/uL 0.72 K/uL Lymphocytes # (Auto) 0.62 K/uL 0.56 K/uL Monocytes # (Auto) 0.19 K/uL 0.10 K/uL Eosinophils # (Auto) 0.01 K/uL 0.00 K/uL Basophils # (Auto) 0.02 K/uL 0.03 K/uL RDW Standard Deviation 47.2 fL 48.3 fL RDW Coefficient of Variation 14.3 % 14.7 % Immature Granulocyte % (Auto) 0.0 % 0.0 % Immature Granulocyte # (Auto) 0.00 K/uL 0.00 K/uL Toxic Vacuolation 1+ Prothrombin Time 10.0 SECONDS Prothromb Time International Ratio 1.0 Activated Partial Thromboplast Time 28.2 SECONDS Partial Thromboplastin Ratio 1.1 Sodium Level 135 mmol/L 135 mmol/L Potassium Level 3.4 mmol/L 3.8 mmol/L Chloride Level 101 mmol/L 103 mmol/L Carbon Dioxide Level 29 mmol/L 24 mmol/L Anion Gap 5.0 mmol/L 8.0 mmol/L Blood Urea Nitrogen 3 mg/dl 6 mg/dl Creatinine 0.59 mg/dl 0.73 mg/dl Est Creatinine Clear Calc Drug Dose 73.5 ml/min 59.4 ml/min Estimated GFR () 119.6 107.5 Estimated GFR (Non- 103.2 92.7 BUN/Creatinine Ratio 5.8 8.6 Random Glucose 83 mg/dl 152 mg/dl Lactic Acid Level 1.2 mmol/L Calcium Level 8.5 mg/dl 8.6 mg/dl Total Bilirubin 0.3 mg/dl Aspartate Amino Transf (AST/SGOT) 85 U/L Alanine Aminotransferase (ALT/SGPT) 53 U/L Alkaline Phosphatase 620 U/L Troponin I < 0.015 ng/ml Total Protein 7.6 gm/dl Albumin 3.3 gm/dl Globulin 4.3 gm/dl Albumin/Globulin Ratio 0.8 Influenza Type A (RT-PCR) POS for Influ A Influenza Type B (RT-PCR) Neg for Influ B Urine Color YELLOW Urine Appearance CLEAR Urine pH 8.0 Urine Specific [place] 1.008 Urine Protein NEG Urine Glucose (UA) 1+ Urine Ketones NEG Urine Occult Blood NEG Urine Nitrite NEG Urine Bilirubin NEG Urine Urobilinogen NEG Urine Leukocyte Esterase NEG Smudge Cells PRESENT Large Platelets 2+ Phosphorus Level 2.5 mg/dl Magnesium Level 1.9 mg/dl Assessment and Plan 57-year-old female likely COPD with history of asthma who continues to smoke presents with acute respiratory failure with hypoxia Acute Hypoxic Respiratory Failrue 2/2 Possible COPD Exacerbation and Influenza A : - Currently on RA however poor inspiratory airflow - Continue Methylprednisolone 40 mg IV BID and Levofloxacin 750 mg IV daily - Duonebs; Formoterol BID; Mucinex BID - Tamiflu 75 mg daily Neutropenia 2/2 Viral Etiology - Neutropenic precautions - will continue to monitor Tobacco Use: - Continue to encourage cessation H/O Transaminitis S/P Bx: Noted - Follows with Dr. Melton at [facility] DVT Prophylaxis: Lovenox Disposition: - Encourage ambulation - possible D/C next 1-2 days Continued [facility] stay due to: other (poor inspiratory effort) Discharge planning: home
[2017-11-14] MEDS: ALBUT/IPRATROP 3MG/0.5MG NEB 3 ML VIAL INH SCH ×3 (12:00→20:00)
[2017-11-14] MEDS: ENOXAPARIN 40 MG/0.4 ML SYR SQ SCH (18:00)
[2017-11-14] MEDS: LEVOFLOXACIN 750MG / D5W IV SCH (18:00)
[2017-11-15] VITALS (7 sets, daily range): BP systolic 104–127; BP diastolic 67–79; PULSE 72–89; TEMP 36.5–37; O2SAT 90–95
[2017-11-15] MEDS: ALBUT/IPRATROP 3MG/0.5MG NEB 3 ML VIAL INH SCH ×4 (07:19→19:23)
[2017-11-15] MEDS: FORMOTEROL FUMA NEBULIZER SOLN 20 MCG/2 ML VIAL INH SCH ×2 (07:19→19:23)
[2017-11-15 07:26] LABS: HEMATOCRIT 36.2 % (37-47); HEMOGLOBIN 12.6 g/dL (12.0-16.0); MEAN CELL VOLUME 91.2 fL (80-100); MEAN CORPUSCULAR HEMOGLOBIN 31.7 pg (25-34); MEAN CORPUSCULAR HGB CONC 34.8 g/dl (32-36); MEAN PLATELET VOLUME 8.6 fL (7.4-10.4); PLATELET COUNT 276 K/uL (130-400); RED CELL DISTRIBUTION WIDTH SD 50.5 fL (36.4-46.3); WHITE BLOOD COUNT 3.16 K/uL (4.8-10.8)
[2017-11-15] MEDS: OSELTAMIVIR PHOSPHATE 75 MG CAP PO SCH ×2 (07:37→21:05)
[2017-11-15] MEDS: METHYLPREDNISOLONE IV 40 MG in SYRINGE 0 ML IV SCH (07:37)
[2017-11-15] MEDS: GUAIFENESIN 600 MG TABCR PO SCH ×2 (07:37→21:04)
[2017-11-15 08:01] LABS: ALBUMIN 3.2 gm/dl (3.4-5.0); CREATININE 0.62 mg/dl (0.60-1.20); POTASSIUM 4.3 mmol/L (3.5-5.1)
[2017-11-15 08:09] LABS: PHOSPHORUS 3.5 mg/dl (2.5-4.9); TOTAL PROTEIN 8.1 gm/dl (6.4-8.2)
[2017-11-15 08:11] LABS: BASO % 2.2 %; BASO ABS # 0.07 K/uL (0-0.2); IG# 0.01 K/uL (0.00-0.02); LYMPH % 30.7 %; LYMPH ABS # 0.97 K/uL (1.2-3.4); MONO % 7.9 %; MONO ABS # 0.25 K/uL (0.11-0.59); NEUT % 58.9 %; NEUT ABS # 1.86 K/uL (1.4-6.5)
--- NOTE | 2017-11-15 14:41 | Hospitalist Progress Note ---
Hospitalist Progress Note Date of Service Nov 15, 2017. Subjective Pt evaluation today including: conversation w/ patient, physical exam, lab review, review of studies, review of inpatient medication list Patient seen and evaluated. No acute events overnight. Patient reporting still feeling weak but much better since admission. Having more coughing today that is occ. productive but largely dry. Feels that her breathing is better but states she never really had SOB. Airways a little more open with intermittent wheeze but do sound improved from yesterday. Remains afebrile. Neutropenia resolved Constitutional: + weakness (generalized - improving), No fever, No chills Respiratory: + cough, + wheezing, No sputum, No shortness of breath Cardiovascular: No chest pain Abdomen: No pain, No nausea Female : No dysuria Heme: No abnormal bleeding/bruising Medications Current Inpatient Medications Medications (Trade) Dose Ordered Sig/Eddie Route Start Time Stop Time Status Last Admin Dose Admin Enoxaparin Sodium (Lovenox Inj) 40 mg Q24H SQ 11/13/17 18:00 12/13/17 17:59 11/15/17 17:35 40 MG Acetaminophen (Tylenol Tab) 650 mg Q4H PRN PO 11/13/17 15:00 12/13/17 14:59 11/14/17 15:34 650 MG Al Hydrox/Mg Hydrox/Simethicone (Maalox Max Susp) 15 ml Q4H PRN PO 11/13/17 15:00 12/13/17 14:59 Magnesium Hydroxide (Milk Of Magnesia Susp) 30 ml Q6H PRN PO 11/13/17 15:00 12/13/17 14:59 Ondansetron HCl (Zofran Inj) 4 mg Q6H PRN IV 11/13/17 15:00 12/13/17 14:59 Formoterol Fumarate (Perforomist 20MCG/2ML Neb Soln) 20 mcg Q12R INH 11/13/17 20:00 12/13/17 19:59 11/15/17 07:19 20 MCG Methylprednisolone Sodium Succinate 40 mg/Syringe 0.64 ml @ 1.5 mls/min BID IV 11/13/17 21:00 12/13/17 20:59 11/15/17 07:37 1.5 MLS/MIN Guaifenesin (Mucinex Contr Rel Tab) 1,200 mg Q12 PO 11/13/17 21:00 12/13/17 20:59 11/15/17 07:37 1,200 MG Oseltamivir Phosphate (Tamiflu Cap) 75 mg BID PO 11/13/17 21:00 11/18/17 20:59 11/15/17 07:37 75 MG Levofloxacin 750 mg/Prmx 150 ml @ 100 mls/hr Q24H IV 11/13/17 18:00 11/20/17 17:59 11/15/17 17:35 100 MLS/HR Albuterol/ Ipratropium (Duoneb) 3 ml QIDR INH 11/14/17 12:00 12/14/17 11:59 11/15/17 15:09 3 ML Objective Vital Signs Date Time Temp Pulse Resp B/P (MAP) Pulse Ox O2 Delivery O2 Flow Rate FiO2 11/15/17 11:20 86 16 95 Room Air 11/15/17 08:00 Room Air 11/15/17 07:19 89 16 90 Room Air 11/15/17 07:13 37.0 72 16 127/79 (95) 93 Room Air 11/15/17 00:00 Room Air 11/14/17 22:28 36.8 76 24 118/71 (87) 91 Room Air 11/14/17 19:37 79 16 93 Room Air 11/14/17 16:20 36.8 85 22 108/70 (83) 91 Room Air 11/14/17 16:00 Room Air 11/14/17 14:43 71 18 92 Room Air Physical Exam General Appearance: WD/WN, no apparent distress Eyes: sclerae normal ENT: hearing grossly normal Neck: supple, no JVD, trachea midline Respiratory/Chest: no respiratory distress, no accessory muscle use, + decreased breath sounds (bases b/l with improving aeration diffusely), + wheezing (minimal expiratory) Cardiovascular: regular rate, rhythm, no gallop, no murmur Abdomen: normal bowel sounds, non tender, soft Extremities: no pedal edema Neurologic/Psychiatric: alert Skin: normal color Laboratory Results Last 24 Hours Test 11/15/17 07:15 White Blood Count 3.16 K/uL Red Blood Count 3.97 M/uL Hemoglobin 12.6 g/dL Hematocrit 36.2 % Mean Corpuscular Volume 91.2 fL Mean Corpuscular Hemoglobin 31.7 pg Mean Corpuscular Hemoglobin Concent 34.8 g/dl Platelet Count 276 K/uL Mean Platelet Volume 8.6 fL Neutrophils (%) (Auto) 58.9 % Lymphocytes (%) (Auto) 30.7 % Monocytes (%) (Auto) 7.9 % Eosinophils (%) (Auto) 0.0 % Basophils (%) (Auto) 2.2 % Neutrophils # (Auto) 1.86 K/uL Lymphocytes # (Auto) 0.97 K/uL Monocytes # (Auto) 0.25 K/uL Eosinophils # (Auto) 0.00 K/uL Basophils # (Auto) 0.07 K/uL RDW Standard Deviation 50.5 fL RDW Coefficient of Variation 15.0 % Immature Granulocyte % (Auto) 0.3 % Immature Granulocyte # (Auto) 0.01 K/uL Sodium Level 137 mmol/L Potassium Level 4.3 mmol/L Chloride Level 104 mmol/L Carbon Dioxide Level 26 mmol/L Anion Gap 7.0 mmol/L Blood Urea Nitrogen 7 mg/dl Creatinine 0.62 mg/dl Est Creatinine Clear Calc Drug Dose 70.0 ml/min Estimated GFR () 117.7 Estimated GFR (Non- 101.5 BUN/Creatinine Ratio 10.6 Random Glucose 117 mg/dl Calcium Level 9.0 mg/dl Phosphorus Level 3.5 mg/dl Magnesium Level 2.1 mg/dl Total Bilirubin 0.3 mg/dl Direct Bilirubin 0.1 mg/dl Aspartate Amino Transf (AST/SGOT) 148 U/L Alanine Aminotransferase (ALT/SGPT) 98 U/L Alkaline Phosphatase 637 U/L Total Protein 8.1 gm/dl Albumin 3.2 gm/dl Monoscreen NEG Assessment and Plan 57-year-old female likely COPD with history of asthma who continues to smoke presents with acute respiratory failure with hypoxia Acute Hypoxic Respiratory Failure 2/2 Possible COPD Exacerbation and Influenza A : - Currently on RA with improving aeration but still intermittent wheeze - Convert to Prednisone 40 mg daily and will do taper and Levofloxacin 750 mg daily - Duonebs; Formoterol BID; Mucinex BID - Tamiflu 75 mg daily Neutropenia 2/2 Viral Etiology: RESOLVED Tobacco Use: - Continue to encourage cessation H/O Transaminitis S/P Bx: Noted - Elevated today which may partially be from viral illness - will monitor - Follows with Dr. Melton at [facility] DVT Prophylaxis: Lovenox Disposition: - Encourage ambulation - possible D/C tomorrow Continued [facility] stay due to: ambulation difficulties Discharge planning: home
[2017-11-15] MEDS: ENOXAPARIN 40 MG/0.4 ML SYR SQ SCH (17:35)
[2017-11-15] MEDS: LEVOFLOXACIN 750MG / D5W IV SCH (17:35)
[2017-11-15] MEDS ORDERED: BENZONATATE 100MG CAP PO PRN (17:45)
[2017-11-15] MEDS: ACETAMINOPHEN 325 MG TAB PO PRN (23:22)
[2017-11-16] MEDS: ALBUT/IPRATROP 3MG/0.5MG NEB 3 ML VIAL INH SCH ×2 (06:58→11:13)
[2017-11-16] MEDS: FORMOTEROL FUMA NEBULIZER SOLN 20 MCG/2 ML VIAL INH SCH (06:58)
[2017-11-16 07:00] VITALS: PULSE 77; O2SAT 94
[2017-11-16] MEDS: GUAIFENESIN 600 MG TABCR PO SCH (07:36)
[2017-11-16] MEDS: OSELTAMIVIR PHOSPHATE 75 MG CAP PO SCH (07:36)
[2017-11-16 08:06] VITALS: BP 122/76; PULSE 68; TEMP 36.8; O2SAT 100
[2017-11-16] MEDS: ACETAMINOPHEN 325 MG TAB PO PRN (09:49)
[2017-11-16] MEDS ORDERED: PRD20 PO (10:38)
[2017-11-16] MEDS ORDERED: LVQ750 PO (10:38)
[2017-11-16] MEDS ORDERED: TMF75 PO (10:38)
[2017-11-16] MEDS ORDERED: GFNSR600 PO (10:38)
--- NOTE | 2017-11-16 10:38 | Discharge Instructions ---
Discharge Instructions Date of Service Nov 16, 2017. Admission Reason for Admission: Exacerbation Of Asthma Discharge Discharge Diagnosis / Problem: copd exac Discharge Goals Goal(s): Decrease discomfort, Improve function, Increase independence, Improve disease control, Improve nutritional status, Learn about illness, Diagnostic testing, Therapeutic intervention, Prevent Disease Progression, Specific goals Activity Recommendations Activity Limitations: resume your previous activity . Instructions / Follow-Up Instructions / Follow-Up you have Acute Hypoxic Respiratory Failure 2/2 Possible COPD Exacerbation and Influenza A: will give you tapering dose of Prednisone you have Neutropenia secondary to Viral, RESOLVED recs quit smoking, call pcp if need help - you need to follow up with your primary care physician in 1 week, - take medication as instructed, never overdose or any misuse, or take with alcohol, because misuse of medicine may cause organ damage or , call your primary care physician if have questions of medicaitons. - call your primary care physician OR go to local emergency room if has any fever/chill, chest pain, shortness of breathing, nausea/vomiting/abdominal pain , facial droop/slurry speech/local weakness, or if has any questions. - fall precaution - diet as instructed - you need to follow up with your subspecialist Current Hospital Diet Patient's current hospital diet: Regular Diet Discharge Diet Recommended Diet: Regular Diet Pending Studies Studies pending at discharge: no Laboratory Results Meds Administered (Past 24Hrs) Medications (Trade) Dose Ordered Sig/Eddie Route Start Time Stop Time Status Last Admin Dose Admin Albuterol/ Ipratropium (Duoneb) 3 ml QIDR INH 11/14/17 12:00 12/14/17 11:59 11/16/17 06:58 3 ML Prednisone (PredniSONE TAB) 40 mg DAILY PO 11/16/17 09:00 12/16/17 08:59 11/16/17 07:36 40 MG Benzonatate (Tessalon Perles Cap) 100 mg TID PRN PO 11/15/17 17:45 12/15/17 17:44 11/15/17 18:34 100 MG Levofloxacin (Levaquin Tab) 750 mg DAILY@11 PO 11/16/17 11:00 11/20/17 10:59 11/16/17 09:49 750 MG Medical Emergencies . Who to Call and When: Medical Emergencies: If at any time you feel your situation is an emergency, please call 911 immediately. . Non-Emergent Contact Non-Emergency issues call your: Primary Care Provider . . "Provider Documentation" section prepared by Osvaldo Mann. .
[2017-11-16 10:40] VITALS: BP 122/76; PULSE 68; TEMP 36.8; O2SAT 100
[2017-11-16] MEDS ORDERED: LEVOFLOXACIN 750 MG TAB PO SCH (11:00)
[2017-11-16 11:13] VITALS: PULSE 81; O2SAT 95
--- NOTE | 2017-11-16 20:40 | Discharge Summary ---
Discharge Summary Date of Service Nov 16, 2017. Discharge Summary Admission Date: Nov 13, 2017 at 15:08 Discharge Date: Nov 16, 2017 Discharge Disposition: Home Principal Diagnosis: Acute Hypoxic Respiratory Failure 2/2 Possible COPD Exacerbation and Influe Problems/Secondary Diagnoses: Neutropenia secondary to Viral, RESOLVED tobacco abuse disorder Procedures: no Consultations: no Medication Reconciliation New Medications: Guaifenesin Ext Rel (Mucinex Ext Rel) 600 Mg Tabcr 1200 MG PO Q12 for 4 Days Levofloxacin (Levofloxacin) 750 Mg Tab 750 MG PO DAILY@11 for 4 Days, TAB Oseltamivir Phosphate (Tamiflu) 75 Mg Cap 75 MG PO BID for 3 Days, #6 CAP Prednisone (Prednisone) 20 Mg Tab 40 MG PO DAILY for 8 Days, #15 TAB 2 tabs bid for 2 days, then 1 tab po bid for 2 days, then 1 tab po daily for 2 days, then 1/2 tab po daily for 2 days, then stop Continued Medications: Albuterol Hfa (Ventolin Hfa) 200 Puffs/57258 Mcg Aers 2-4 PUFFS INH Q6H PRN for Shortness of Breath, #1 INHALER Famotidine (Pepcid) 20 Mg Tab 20 MG PO DAILY, TAB Fluticasone Propionate (Flovent Hfa) 120 Puffs/67359 Mcg Aero 2 PUFFS INH BID, #1 INHALER 3 Refills Fluticasone Propionate (Nasal) (Flonase Allergy Relief) 50 Mcg/Act Spr 1 SPRAY NA BID Ipratropium-Albuterol (Combivent Respimat) 1 Aer Aer 1 PUFFS INH QID, INH Ipratropium-Albuterol (Duoneb) 3 Ml Nebu 1 TREATMENT INH Q4H, INHA Loratadine (Claritin) 10 Mg Tab 10 MG PO DAILY, TAB Discharge Exam still cough, no wheezing, but generally feeling better, Review of Systems: Constitutional: No fever, No chills, No sweats, No weight loss, No weakness , No fatigue, No problem reported Eyes: No worsening of vision, No eye pain, No redness, No discharge, No diplopia, No problem reported ENT: No hearing loss, No unusual epistaxis, No nasal symptoms, No sore throat, No tinnitus, No dental problems, No trouble swallowing, No problem reported Respiratory: + cough, + wheezing Cardiovascular: No chest pain, No orthopnea, No PND, No edema, No claudication, No palpitations, No problem reported Abdomen: No pain, No nausea, No vomiting, No diarrhea, No constipation, No GI bleeding, No problem reported Genitourinary - Female: No dysuria, No urinary frequency, No urinary urgency , No urinary incontinence, No urinary retention, No hematuria, No dysmenorrhea, No menorrhagia, No metrorrhagia, No rash, No vaginal bleeding, No vaginal discharge, No vaginal itching, No vulvodynia, No , No problem reported Neurologic: No memory loss, No paralysis, No weakness, No numbness/tingling , No vertigo, No balance problems, No problem reported Psychiatric: No depression symptoms, No anhedonism, No anxiety, No insomnia , No substance abuse, No problem reported Endocrine: No fatigue, No excessive thirst, No excessive urination, No problem reported Hematologic / Lymphatic: No abnormal bleeding/bruising, No clotting problems , No swollen lymph nodes, No night sweats, No problem reported Physical Exam: General Appearance: WD/WN, no apparent distress, + thin Eyes: normal inspection, PERRL ENT: normal ENT inspection, hearing grossly normal Neck: supple, thyroid normal Respiratory/Chest: chest non-tender, + decreased breath sounds, + wheezing Cardiovascular: regular rate, rhythm, no edema, no gallop, no JVD Abdomen / GI: normal bowel sounds, non tender, soft Extremities: normal inspection, no calf tenderness, normal capillary refill 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, no motor/sensory deficits , alert, normal mood/affect, normal reflexes, oriented x 3 Skin: normal color, warm/dry Hospital Course 57-year-old female likely COPD with history of asthma who continues to smoke presents with acute respiratory failure with hypoxia Acute Hypoxic Respiratory Failure 2/2 Possible COPD Exacerbation and Influenza A : stable/improving Convert tsolu medrol to Prednisone 40 mg daily and will do taper and Levofloxacin 750 mg daily, will give prednisone tapering dose to home - Duonebs; Formoterol BID; Mucinex BID - Tamiflu 75 mg daily Neutropenia 2/2 Viral Etiology: RESOLVED Tobacco Use: - Continue to encourage cessation H/O Transaminitis S/P Bx: Noted - Elevated today which may partially be from viral illness, resolved - Follows with Dr. Melton at [facility] [place] Prophylaxis: Lovenox Disposition: - Encourage ambulation - DC home in stable conditions Instructions / Follow-Up you have Acute Hypoxic Respiratory Failure 2/2 Possible COPD Exacerbation and Influenza A: will give you tapering dose of Prednisone you have Neutropenia secondary to Viral, RESOLVED recs quit smoking, call pcp if need help - you need to follow up with your primary care physician in 1 week, - take medication as instructed, never overdose or any misuse, or take with alcohol, because misuse of medicine may cause organ damage or , call your primary care physician if have questions of medicaitons. - call your primary care physician OR go to local emergency room if has any fever/chill, chest pain, shortness of breathing, nausea/vomiting/abdominal pain , facial droop/slurry speech/local weakness, or if has any questions. - fall precaution - diet as instructed - you need to follow up with your subspecialist Total Time Spent: Greater than 30 minutes This includes examination of the patient, discharge planning, medication reconciliation, and communication with other providers. Discharge Instructions Please refer to the electronic Patient Visit Report (Discharge Instructions) for additional information. Additional Copies To Cooper Cosme D.O.
== END 2017-11-16 14:29 | disposition home or self-care (01) | DRG 190 ==
LOC: C.EDB 12:23 → UNDOADMIN 15:08 → C.MS2W 15:08 → EDBEDREQ 15:17 → ENRESERV 15:31 → CANRESERV 15:31 → ENRESERV 16:03
PROVIDERS: ADMIT Internal Medicine; ATTEND Internal Medicine
DX: J44.1 Chronic obstructive pulmonary disease with (acute) exacerbation (principal); J96.01 Acute respiratory failure with hypoxia; F17.200 Nicotine dependence, unspecified, uncomplicated; J10.1 Influenza due to other identified influenza virus with other respiratory manifestations; D70.9 Neutropenia, unspecified

== ENCOUNTER → 2017-12-03 | Outpatient (CLI) | payer OTHER ==
[~2017-12-03] MED LIST changes: -BUPR-267 PO; +GFNSR600 PO; +LVQ750 PO; +OPTIRAY 320 IV PRN; +PRD20 PO; +TMF75 PO
--- NOTE | 2017-12-03 09:24 | DIAGNOSTIC IMAGING REPORT ---
CHEST CT WITH CONTRAST CT DOSE: 165.19 mGycm HISTORY: J45.909 [id number] Chronic obstructive pulmonary [id number] Cou TECHNIQUE: Multiaxial CT images of the chest were performed following the intravenous administration of contrast. A dose lowering technique was utilized adhering to the principles of ALARA. COMPARISON: Chest CTA 07/08/2017. FINDINGS: No pneumothorax. No pleural effusions. Mild emphysema. Multiple biapical bulla are present. The largest on the right measures 3.3 cm. The central airways are patent. A 1.4 x 1.0 cm left apical irregular density remains unchanged. This is best seen on image 46. Calcified granuloma within the left lung apex on image 63. Chronic mild interstitial thickening at the lung bases. No new focal lung consolidations to suggest pneumonia. Small cluster of tree-in-bud nodular opacities within the right middle lobe. No significant change in the 11 mm irregular density within the right lower lobe on image 133. This is stable dating back to a 2016 examination. No suspicious lytic or blastic osseous lesions. No mediastinal or hilar lymphadenopathy. The visualized liver, spleen, and adrenal glands are unremarkable. Normal caliber thoracic aorta. No pericardial effusion. The central pulmonary arteries are patent. IMPRESSION: 1. No significant change in the 11 mm irregular density within the right lower lobe. This is stable dating back to the 2016 examinations. 2. Mild emphysema with multiple bullae at the lung apices. 3. Stable 1.4 cm irregular density within the left lung apex. This favors scarring. 4. A small cluster of tree-in-bud nodular opacities within the right middle lobe. This favors mild inflammatory/infectious change. Otherwise, no focal lung consolidations. Electronically signed by: Shashank Silveira M.D. 12/03/2017 9:22 AM Dictated Date/Time: 12/03/2017 9:12 AM
[2017-12-03 09:36] LABS: BASO % 0.3 %; BASO ABS # 0.02 K/uL (0-0.2); EOS % 1.9 %; EOS ABS # 0.14 K/uL (0-0.5); HEMATOCRIT 35.4 % (37-47); HEMOGLOBIN 12.1 g/dL (12.0-16.0); IG# 0.08 K/uL (0.00-0.02); LYMPH % 19.8 %; LYMPH ABS # 1.46 K/uL (1.2-3.4); MEAN CELL VOLUME 92.2 fL (80-100); MEAN CORPUSCULAR HEMOGLOBIN 31.5 pg (25-34); MEAN CORPUSCULAR HGB CONC 34.2 g/dl (32-36); MEAN PLATELET VOLUME 8.3 fL (7.4-10.4); MONO % 9.4 %; MONO ABS # 0.69 K/uL (0.11-0.59); NEUT % 67.5 %; NEUT ABS # 4.98 K/uL (1.4-6.5); PLATELET COUNT 262 K/uL (130-400); RED CELL DISTRIBUTION WIDTH CV 15.9 % (11.5-14.5); RED CELL DISTRIBUTION WIDTH SD 52.7 fL (36.4-46.3); WHITE BLOOD COUNT 7.37 K/uL (4.8-10.8)
[2017-12-03 10:13] LABS: ALBUMIN 3.1 gm/dl (3.4-5.0); ALKALINE PHOSPHATASE 317 U/L (45-117); AST/SGOT 84 U/L (15-37); BLOOD UREA NITROGEN 17 mg/dl (7-18); CALCIUM 9.1 mg/dl (8.5-10.1); CARBON DIOXIDE 29 mmol/L (21-32); CHOLESTEROL 247 mg/dl (0-200); CREATININE 0.64 mg/dl (0.60-1.20); GLUCOSE 86 mg/dl (70-99); LDL CHOLESTEROL CALCULATED 129 mg/dl; POTASSIUM 3.9 mmol/L (3.5-5.1); SODIUM 129 mmol/L (136-145); TOTAL PROTEIN 7.3 gm/dl (6.4-8.2)
[2017-12-03 10:14] LABS: ALT/SGPT 119 U/L (12-78)
== END | disposition home or self-care (01) ==
LOC: C.CTS 08:53
PROVIDERS: ATTEND Internal Medicine Pulmonary Disease
DX: J45.909 Unspecified asthma, uncomplicated (principal); J44.9 Chronic obstructive pulmonary disease, unspecified; R05 Cough; E78.5 Hyperlipidemia, unspecified; R91.8 Other nonspecific abnormal finding of lung field

== ENCOUNTER 2017-12-19 19:29 | Emergency (ER) | payer OTHER ==
[~2017-12-19] VITALS: Ht 149.9 cm; Wt 53.1 kg
[2017-12-19 19:29] VITALS: TEMP 36.8; O2SAT 94; Ht 149.9 cm; Wt 53.1 kg
[~2017-12-19 19:29] MED LIST changes: -OPTIRAY 320 IV PRN
[2017-12-19] MEDS ORDERED: MoRPHine SULFATE 4 MG/ML 1 ML CARP\\VIAL IV STA (19:48)
[2017-12-19] MEDS ORDERED: ALBUT/IPRATROP 3MG/0.5MG NEB 3 ML VIAL INH STA (19:48)
--- NOTE | 2017-12-19 19:55 | EMERGENCY ROOM VISIT NOTE ---
History Report prepared by Kayy: Johanny Valera Under the Supervision of: Dr. Valentino Arguello M.D. First contact with patient: 19:42 Chief Complaint: SHORTNESS OF BREATH Stated Complaint: SOB History of Present Illness The patient is a 57 year old female who presents to the Emergency Room brought in by EMS with complaints of persistent general shortness of breath for two days. She recently had the flu last month. She notes sharp pain to her right side, which is worsened with her cough. She notes the pain in her left side just happened on her way to the ED. She notes her cough is mildly productive. EMS administered her Prednisone. She has a history of asthma. She notes she was prescribed Prednisone November 29, 2017 by her PCP. She also had a liver biopsy November 06, 2017 due to abnormal LFTs. She has a history of diverticulitis. She denies any history of blood clots. She denies any history of cardiac issues. She denies any fever. Source of History: patient Onset: two day Position: other (general) Quality: other (shortness of breath) Timing: other (persistent) Associated Symptoms: + cough, + abdominal pain (right side, sharp), No fevers Review of Systems See HPI for pertinent positives & negatives. A total of 10 systems reviewed and were otherwise negative. Past Medical & Surgical Medical Problems: (1) Asthma (2) Pneumonia Old medical records were reviewed. Nurse's notes were reviewed and I agree with. Family History Asthma Social History Smoking Status: Current Every Day Smoker Alcohol Use: occasionally Drug Use: none Marital Status: Housing Status: lives with family Current/Historical Medications Scheduled Azithromycin (Zithromax Z-Ziggy), 0 PO UD Famotidine (Pepcid), 20 MG PO DAILY Fluticasone Propionate (Flovent Hfa), 2 PUFFS INH BID Fluticasone Propionate (Nasal) (Flonase Allergy Relief), 1 SPRAY NA BID Guaifenesin Ext Rel (Mucinex Ext Rel), 1,200 MG PO Q12 Ipratropium-Albuterol (Combivent Respimat), 1 PUFFS INH QID Ipratropium-Albuterol (Duoneb), 1 TREATMENT INH Q4H Levofloxacin (Levofloxacin), 750 MG PO DAILY@11 Loratadine (Claritin), 10 MG PO DAILY Oseltamivir Phosphate (Tamiflu), 75 MG PO BID Prednisone (Prednisone), 40 MG PO DAILY Prednisone (Prednisone), 50 MG PO DAILY Scheduled PRN Albuterol Hfa (Ventolin Hfa), 2-4 PUFFS INH Q6H PRN for Shortness of Breath Oxycodone Immediate Rel Tab (Roxicodone Ir), 1 TAB PO Q4H PRN for Severe Pain Allergies Coded Allergies: No Known Allergies (Unverified , 11/13/17) Physical Exam Vital Signs Date Time Temp Pulse Resp B/P (MAP) Pulse Ox O2 Delivery O2 Flow Rate FiO2 12/19/17 23:25 100 22 142/86 93 12/19/17 22:09 100 20 121/83 92 Room Air 12/19/17 20:35 107 18 139/88 92 Room Air 12/19/17 20:17 97 12/19/17 19:29 36.8 113 28 140/90 97 Room Air 12/19/17 19:29 97 Room Air 12/19/17 19:29 94 Room Air Physical Exam General: Non-ill appearing middle-aged female in no acute distress. Complaining of right rib pain worse with movement and breathing. HEENT: Normal cephalic atraumatic. Pupils are equal round and reactive to light. Extraocular movements are intact. Oropharynx is pink with moist mucous membranes. No swelling of the mouth lips or tongue. Neck: Supple with a midline trachea. No meningeal signs or stiffness, no JVD or bruits. No Stridor. Chest: Mild tachypnea. Mild wheezes bilaterally. Mild increased work of breathing. Heart: regular rate and rhythm. Abdomen: Soft nontender, nondistended without rebound guarding or rigidity. Extremities: No cyanosis clubbing or edema. No calf tenderness or assymetry Spine/Back. Non tender to palpation. No CVA tenderness Skin: Good turgor without rashes. Neurologic exam: Cranial nerves two through 12 are intact. Motor and sensation are intact and symmetrical throughout. Medical Decision & Procedures ER Provider Diagnostic Interpretation: Radiology results as stated below per my review and radiologist interpretation: CT ANGIOGRAM OF THE CHEST CLINICAL HISTORY: Dyspnea. COMPARISON STUDY: Chest x-ray dated 12/19/2017. Chest CT scans dated 12/03/2017 and 04/11/2014. TECHNIQUE: Following the IV administration of 95 cc of Optiray 320, CT angiogram of the chest was performed from the upper abdomen to the thoracic inlet utilizing the pulmonary embolus protocol. Images are reviewed in the axial, sagittal, and coronal planes. 3-D MIPS images are created and assessed. IV contrast was administered without complication. A dose lowering technique was utilized adhering to the principles of ALARA. CT DOSE: 306.97 mGy.cm FINDINGS: Thyroid: Imaged portions of the thyroid gland are normal in size and attenuation. Thoracic aorta: The thoracic aorta is normal in caliber and demonstrates standard 3-vessel arch anatomy. No dissection is seen. Pulmonary vasculature: The pulmonary trunk is normal in caliber. There are no filling defects identified in main, lobar, or segmental pulmonary branches to suggest pulmonary embolus. Heart: The heart is normal in size and configuration, and without pericardial effusion. Lungs and pleural spaces: Emphysema and apical scarring are again noted. Apical bullae are again seen. There is no airspace lobar consolidation or pleural effusion. 11 mm irregular airspace opacity in the right lower lobe seen on image #135 and a 1.4 cm irregular density at the left apex on image #255 are unchanged from 12/03/2017. Mild diffuse peribronchial thickening suggests reactive airway disease. Minimal secretions are noted in the right mainstem bronchus. Minimal tree-in-bud airspace opacities in the right upper lobe are unchanged. The trachea is patent. Mediastinum: There is no mediastinal lymphadenopathy. Izabella: Clear. Axillae: There is no axillary lymphadenopathy. Upper abdomen: There is a tiny hiatal hernia. Partially visualized upper abdominal viscera is otherwise within normal limits. Skeletal structures: The skeletal structures are osteopenic. No lytic or blastic bony lesions are seen. IMPRESSION: 1. There is no evidence of pulmonary embolus in the main, lobar, or segmental pulmonary arteries. 2. Emphysema. 3. There is no lobar consolidation or pleural effusion. 4. Minimal tree-in-bud airspace opacities in the right upper lobe are unchanged from study performed 2 weeks ago. This suggests an infectious/inflammatory pneumonitis. Clinical correlation will be required. 5. Irregular densities at the left apex and the right upper lobe are similar to previous and remain pathologically indeterminant, possibly representing scarring. Continued attention at follow-up is recommended. 6. Additional findings as above. Electronically signed by: Zhen Frausto M.D. 12/19/2017 9:48 PM Dictated Date/Time: 12/19/2017 9:42 PM SINGLE VIEW CHEST CLINICAL HISTORY: Atypical chest pain. FINDINGS: An AP, portable, upright chest radiograph is compared to study dated 11/13/2017 and correlated with chest CT dated 12/03/2017. The examination is degraded by portable technique and patient rotation. The cardiomediastinal silhouette is unremarkable. Emphysema and chronic interstitial thickening are similar to previous. There is biapical scarring. No airspace consolidation or large pleural effusion is identified. No pneumothorax is seen. The skeletal structures are osteopenic. The bony thorax is grossly intact. IMPRESSION: Emphysema with no acute cardiopulmonary abnormality. Electronically signed by: Zhen Frausto M.D. 12/19/2017 8:39 PM Dictated Date/Time: 12/19/2017 8:38 PM Laboratory Results 12/19/17 20:18 Red Blood Count 3.75, Mean Corpuscular Volume 94.1, Mean Corpuscular Hemoglobin 31.5, Mean Corpuscular Hemoglobin Concent 33.4, Mean Platelet Volume 8.3, Neutrophils (%) (Auto) 44.6, Lymphocytes (%) (Auto) 36.9, Monocytes (%) (Auto) 11.7, Eosinophils (%) (Auto) 5.4, Basophils (%) (Auto) 0.6, Neutrophils # (Auto ) 2.32, Lymphocytes # (Auto) 1.92, Monocytes # (Auto) 0.61, Eosinophils # (Auto ) 0.28, Basophils # (Auto) 0.03 12/19/17 20:17 Test 12/19/17 20:17 12/19/17 20:18 12/19/17 20:27 D-Dimer 1880 ug/L FEU (0-500) Anion Gap 5.0 mmol/L (3-11) Est Creatinine Clear Calc Drug Dose 74.0 ml/min Estimated GFR () 116.4 Estimated GFR (Non- 100.5 BUN/Creatinine Ratio 17.6 (10-20) Calcium Level 8.4 mg/dl (8.5-10.1) Total Bilirubin 0.3 mg/dl (0.2-1) Direct Bilirubin 0.1 mg/dl (0-0.2) Aspartate Amino Transf (AST/SGOT) 38 U/L (15-37) Alanine Aminotransferase (ALT/SGPT) 64 U/L (12-78) Alkaline Phosphatase 224 U/L (45-117) Total Protein 7.2 gm/dl (6.4-8.2) Albumin 3.1 gm/dl (3.4-5.0) Lipase 88 U/L (73-393) White Blood Count 5.20 K/uL (4.8-10.8) Red Blood Count 3.75 M/uL (4.2-5.4) Hemoglobin 11.8 g/dL (12.0-16.0) Hematocrit 35.3 % (37-47) Mean Corpuscular Volume 94.1 fL (80-100) Mean Corpuscular Hemoglobin 31.5 pg (25-34) Mean Corpuscular Hemoglobin Concent 33.4 g/dl (32-36) Platelet Count 389 K/uL (130-400) Mean Platelet Volume 8.3 fL (7.4-10.4) Neutrophils (%) (Auto) 44.6 % Lymphocytes (%) (Auto) 36.9 % Monocytes (%) (Auto) 11.7 % Eosinophils (%) (Auto) 5.4 % Basophils (%) (Auto) 0.6 % Neutrophils # (Auto) 2.32 K/uL (1.4-6.5) Lymphocytes # (Auto) 1.92 K/uL (1.2-3.4) Monocytes # (Auto) 0.61 K/uL (0.11-0.59) Eosinophils # (Auto) 0.28 K/uL (0-0.5) Basophils # (Auto) 0.03 K/uL (0-0.2) RDW Standard Deviation 53.6 fL (36.4-46.3) RDW Coefficient of Variation 15.6 % (11.5-14.5) Immature Granulocyte % (Auto) 0.8 % Immature Granulocyte # (Auto) 0.04 K/uL (0.00-0.02) Bedside Troponin I < 0.030 ng/ml (0-0.045) Laboratory studies as stated above per my review. Medications Administered Medications (Trade) Dose Ordered Sig/Eddie Route Start Time Stop Time Status Last Admin Dose Admin Morphine Sulfate (MoRPHine SULFATE INJ) 2 mg NOW STAT IV 12/19/17 19:48 12/19/17 19:51 DC 12/19/17 19:58 2 MG Albuterol/ Ipratropium (Duoneb) 3 ml NOW STAT INH 12/19/17 19:48 12/19/17 19:51 DC 12/19/17 20:06 3 ML Morphine Sulfate (MoRPHine SULFATE INJ) 2 mg NOW STAT IV 12/19/17 23:04 12/19/17 23:05 DC 12/19/17 23:19 2 MG Azithromycin (Zithromax Tab) 500 mg NOW ONCE PO 12/19/17 23:15 12/19/17 23:16 DC 12/19/17 23:18 500 MG Oxycodone HCl (Roxicodone Immediate Rel 5MG Home Pack) 1 homepack UD ONCE PO 12/19/17 23:15 12/19/17 23:16 DC 12/19/17 23:13 1 HOMEPACK ECG Per My Interpretation Indication: SOB/dyspnea Rate (beats per minute): 104 Rhythm: sinus tachycardia Findings: no acute ischemic change, no ectopy Change: no significant change (When compared to 11/13/2017) ED Course 1942: Past medical records reviewed. The patient was evaluated in room A11B, and a complete history and physical examination were performed. 1947: Ordered DuoNeb 3 ml INH and Morphine Sulfate 2 mg IV 2037: I reassessed the patient at this time. She is resting. 2111: I reassessed the patient at this time. She agreed to have a CT scan. 2257: I reassessed the patient at this time. She appears to be breathing comfortably. When she coughs she has pain in her right chest. I offered her further evaluation, though she declined. She wants to go home. I discussed the results and treatment plan with the patient. I answered all pertaining questions that she had. She expressed understanding and verbalized agreement. The patient will be discharged home. 2303: Ordered Morphine Sulfate 2 mg IV 2310: I reassessed the patient at this time. I discussed her medications with her. 2314: Ordered Zithromax 500 mg PO Medical Decision Differentials include, but are not limited to: asthma exacerbation, PNA, PE, PNX , musculoskeletal, or cardiac disease. This patient comes in as described above. She has a long history of asthma and she said that she has had a cough and asthma since she had the flu a couple weeks ago. Shortly after getting here she coughed and started having pain in her right lateral ribs. This was not present until she had gotten here. She had received IV steroids as well as nebs in the ambulance was feeling a lot better besides the cough and the rib pain which just started. She was received additional neb here. I did extensive workup. She received IV morphine for pain and seemed very comfortable with this her lungs are moving much better air. Chest x-ray was unremarkable and has no pneumothorax. Her d-dimer was elevated in light of this, I did a chest CT there is no evidence of PE. There is some irregularities that could be pneumonitis which were present in the last CAT scan a couple weeks ago. She is not presently on antibiotics. I put her on azithromycin. She was also given a prescription for prednisone 50 mg a day for the next 4 days. She appears very comfortable and would like to go home and does not want to be admitted at this point.. I will also give her a small prescription for OxyIR for pain. She was warned that this could make her drowsy and do not take before drinking, driving, working and just use 1 pill every 4-6 hours. That seems to be biggest complaint again after coughing she has rib pain there is no pneumothorax. I encouraged close follow-up with her regular doctor and return to the ER and if: increasing pain, worsening of symptoms, fever or chills, any new problems or concerns. Medication Reconcilliation Current Medication List: was personally reviewed by me Blood Pressure Screening Patient's blood pressure: Elevated blood pressure Blood pressure disposition: Elevated BP felt to be situational Impression Primary Impression: Right-sided chest pain Additional Impression: Asthma exacerbation Scribe Attestation The scribe's documentation has been prepared under my direction and personally reviewed by me in its entirety. I confirm that the note above accurately reflects all work, treatment, procedures, and medical decision making performed by me. Departure Information Dispostion Home / Self-Care Prescriptions Oxycodone Immediate Rel Tab (ROXICODONE IR) 5 Mg Tab 1 TAB PO Q4H Y for Severe Pain, #24 TAB Prov: Valentino Arguello M.D. 12/19/17 Prednisone (Prednisone) 50 Mg Tab 50 MG PO DAILY, #4 TAB Prov: Valentino Arguello M.D. 12/19/17 Azithromycin (ZITHROMAX Z-ZIGGY) 250 Mg Tab 0 PO UD, #1 PKT Prov: Valentino Arguello M.D. 12/19/17 Referrals Cooper Cosme D.O. (PCP) Forms HOME CARE DOCUMENTATION FORM, IMPORTANT VISIT INFORMATION Patient Instructions My [facility] Additional Instructions Rest Drink plenty of fluids. His azithromycin Z-Ziggy as directedantibiotic Use prednisone 50 mg a day for the next 4 dayssteroid May use ibuprofen or Tylenol but do not exceed [id number] recommended dosages for pain More severe pain may use OxyIR 5 mg, 1 pill every 4-6 hours as needed Be very careful as OxyIR can make you drowsy and do not take before drinking, driving, working and do not take with any other narcotics Follow-up with your doctor in 1-2 days for recheck Return here symptoms worsen Problem Qualifiers
[2017-12-19 20:28] LABS: BASO % 0.6 %; BASO ABS # 0.03 K/uL (0-0.2); EOS % 5.4 %; EOS ABS # 0.28 K/uL (0-0.5); HEMATOCRIT 35.3 % (37-47); HEMOGLOBIN 11.8 g/dL (12.0-16.0); IG# 0.04 K/uL (0.00-0.02); LYMPH % 36.9 %; LYMPH ABS # 1.92 K/uL (1.2-3.4); MEAN CELL VOLUME 94.1 fL (80-100); MEAN CORPUSCULAR HEMOGLOBIN 31.5 pg (25-34); MEAN CORPUSCULAR HGB CONC 33.4 g/dl (32-36); MEAN PLATELET VOLUME 8.3 fL (7.4-10.4); MONO % 11.7 %; MONO ABS # 0.61 K/uL (0.11-0.59); NEUT % 44.6 %; NEUT ABS # 2.32 K/uL (1.4-6.5); PLATELET COUNT 389 K/uL (130-400); RED CELL DISTRIBUTION WIDTH CV 15.6 % (11.5-14.5); RED CELL DISTRIBUTION WIDTH SD 53.6 fL (36.4-46.3)
--- NOTE | 2017-12-19 20:40 | DIAGNOSTIC IMAGING REPORT ---
SINGLE VIEW CHEST CLINICAL HISTORY: Atypical chest pain. FINDINGS: An AP, portable, upright chest radiograph is compared to study dated 11/13/2017 and correlated with chest CT dated 12/03/2017. The examination is degraded by portable technique and patient rotation. The cardiomediastinal silhouette is unremarkable. Emphysema and chronic interstitial thickening are similar to previous. There is biapical scarring. No airspace consolidation or large pleural effusion is identified. No pneumothorax is seen. The skeletal structures are osteopenic. The bony thorax is grossly intact. IMPRESSION: Emphysema with no acute cardiopulmonary abnormality. Electronically signed by: Zhen Frausto M.D. 12/19/2017 8:39 PM Dictated Date/Time: 12/19/2017 8:38 PM
[2017-12-19 20:46] LABS: ALBUMIN 3.1 gm/dl (3.4-5.0); CALCIUM 8.4 mg/dl (8.5-10.1); CREATININE 0.64 mg/dl (0.60-1.20); POTASSIUM 3.5 mmol/L (3.5-5.1)
[2017-12-19 20:49] LABS: TOTAL PROTEIN 7.2 gm/dl (6.4-8.2)
[2017-12-19] MEDS ORDERED: OPTIRAY 320 IV PRN (21:45)
--- NOTE | 2017-12-19 21:49 | DIAGNOSTIC IMAGING REPORT ---
CT ANGIOGRAM OF THE CHEST CLINICAL HISTORY: Dyspnea. COMPARISON STUDY: Chest x-ray dated 12/19/2017. Chest CT scans dated 12/03/2017 and 04/11/2014. TECHNIQUE: Following the IV administration of 95 cc of Optiray 320, CT angiogram of the chest was performed from the upper abdomen to the thoracic inlet utilizing the pulmonary embolus protocol. Images are reviewed in the axial, sagittal, and coronal planes. 3-D MIPS images are created and assessed. IV contrast was administered without complication. A dose lowering technique was utilized adhering to the principles of ALARA. CT DOSE: 306.97 mGy.cm FINDINGS: Thyroid: Imaged portions of the thyroid gland are normal in size and attenuation. Thoracic aorta: The thoracic aorta is normal in caliber and demonstrates standard 3-vessel arch anatomy. No dissection is seen. Pulmonary vasculature: The pulmonary trunk is normal in caliber. There are no filling defects identified in main, lobar, or segmental pulmonary branches to suggest pulmonary embolus. Heart: The heart is normal in size and configuration, and without pericardial effusion. Lungs and pleural spaces: Emphysema and apical scarring are again noted. Apical bullae are again seen. There is no airspace lobar consolidation or pleural effusion. 11 mm irregular airspace opacity in the right lower lobe seen on image #135 and a 1.4 cm irregular density at the left apex on image #255 are unchanged from 12/03/2017. Mild diffuse peribronchial thickening suggests reactive airway disease. Minimal secretions are noted in the right mainstem bronchus. Minimal tree-in-bud airspace opacities in the right upper lobe are unchanged. The trachea is patent. Mediastinum: There is no mediastinal lymphadenopathy. Izabella: Clear. Axillae: There is no axillary lymphadenopathy. Upper abdomen: There is a tiny hiatal hernia. Partially visualized upper abdominal viscera is otherwise within normal limits. Skeletal structures: The skeletal structures are osteopenic. No lytic or blastic bony lesions are seen. IMPRESSION: 1. There is no evidence of pulmonary embolus in the main, lobar, or segmental pulmonary arteries. 2. Emphysema. 3. There is no lobar consolidation or pleural effusion. 4. Minimal tree-in-bud airspace opacities in the right upper lobe are unchanged from study performed 2 weeks ago. This suggests an infectious/inflammatory pneumonitis. Clinical correlation will be required. 5. Irregular densities at the left apex and the right upper lobe are similar to previous and remain pathologically indeterminant, possibly representing scarring. Continued attention at follow-up is recommended. 6. Additional findings as above. Electronically signed by: Zhen Frausto M.D. 12/19/2017 9:48 PM Dictated Date/Time: 12/19/2017 9:42 PM
[2017-12-19] MEDS ORDERED: MoRPHine SULFATE 2 MG/ML CARP IV STA (23:04)
[2017-12-19] MEDS ORDERED: OXYC1TAB3 PO (23:09)
[2017-12-19] MEDS ORDERED: AZITTAB PO (23:09)
[2017-12-19] MEDS ORDERED: PRED50TA PO (23:09)
[2017-12-19] MEDS ORDERED: AZITHROMYCIN 250 MG TAB PO ONE (23:15)
[2017-12-19] MEDS ORDERED: OXYCODONE IR HOME PACK PO ONE (23:15)
[2017-12-19 23:25] VITALS: BP 142/86; PULSE 100; O2SAT 93
== END 2017-12-19 23:25 | disposition home or self-care (01) ==
LOC: EDBD 19:29 → C.EDA 19:30
DX: J45.901 Unspecified asthma with (acute) exacerbation (principal); R07.9 Chest pain, unspecified; J43.9 Emphysema, unspecified; F17.210 Nicotine dependence, cigarettes, uncomplicated; Z79.899 Other long term (current) drug therapy